=== PATIENT | female | born 1980 | race Caucasian/White ===

== ENCOUNTER 2023-12-22 10:04 | Outpatient (OUT) | payer OTHER, SELFPAY ==
--- NOTE | 2023-12-22 10:18 | MM_ITS ---
Patient Name: PARVEZ PALMA MR#: [id number] : 1980 Exam Date: 12/22/2023 Ordering Doctor: DR Ron Huff . RADIOLOGY REPORT PROCEDURE: MM TOMOSYNTHESIS SCREENING BI COMPARISON: MG MAMM LT DIAG FU, 08/18/2020. MG MAMM SCREEN 3D WON CAD, 12/30/2021. INDICATIONS: Screening Calculator Name NCI Breast Cancer Risk Assessment Tool 5 Year Breast Cancer Risk 1.00% Lifetime Breast Cancer Risk 12.00% Personal Breast Cancer No Personal Ovarian Cancer No Treatments None Family Cancers None LOCATION: [facility] BREAST COMPOSITION: The breasts are heterogeneously dense,which may obscure small masses. FINDINGS: DIAGNOSTIC CATEGORY 2--BENIGN FINDING: Scattered benign-appearing nodules are present. Scattered benign-appearing calcifications are present. Scattered benign-appearing lymph nodes are present. RIGHT BREAST: No significant suspicious finding. LEFT BREAST: No significant suspicious finding. RECOMMENDATIONS: ROUTINE MAMMOGRAM AND CLINICAL EVALUATION IN 12 MONTHS. PLEASE NOTE: A NORMAL MAMMOGRAM DOES NOT EXCLUDE THE POSSIBILITY OF BREAST CANCER. A CLINICALLY SUSPICIOUS PALPABLE LUMP SHOULD BE BIOPSIED. Dictated by: Gallo Wharton MD on 12/22/2023 at 11:40 Approved by: Gallo Wharton MD on 12/22/2023 at 11:42
== END 2023-12-22 10:05 | disposition home or self-care (01) ==
LOC: MAMMO 10:08
PROVIDERS: PCP Family Medicine; Visit Provider Obstetrics & Gynecology
DX: Z12.31 Encounter for screening mammogram for malignant neoplasm of breast (principal)
CPT/HCPCS: 77063; 77067

== ENCOUNTER 2025-05-15 09:51 | Outpatient (OUT) | payer OTHER, SELFPAY ==
--- NOTE | 2025-05-15 09:53 | MM_ITS ---
Patient Name: PARVEZ PALMA MR#: [id number] : 1980 Exam Date: 05/15/2025 Ordering Doctor: DR KISHAN LOVE . RADIOLOGY REPORT PROCEDURE: MM TOMOSYNTHESIS SCREENING BI COMPARISON: MM TOMOSYNTHESIS SCREENING BI, 12/22/2023. MG MAMM SCREEN 3D WON CAD, 12/30/2021. MG MAMM SCREEN WON W CAD, 07/27/2020. INDICATIONS: Screening Calculator Name NCI Breast Cancer Risk Assessment Tool 5 Year Breast Cancer Risk 1.00% Lifetime Breast Cancer Risk 11.90% Personal Breast Cancer No Personal Ovarian Cancer No Treatments None Family Cancers None LOCATION: [facility] BREAST COMPOSITION: There are scattered areas of fibroglandular density. FINDINGS: DIAGNOSTIC CATEGORY 1--NEGATIVE. RIGHT BREAST: No significant suspicious finding. LEFT BREAST: No significant suspicious finding. RECOMMENDATIONS: ROUTINE MAMMOGRAM AND CLINICAL EVALUATION IN 12 MONTHS. Dictated by: Jorge Ferrell DO on 05/15/2025 at 14:36 Approved by: Jorge Ferrell DO on 05/15/2025 at 14:37
--- OUTSIDE RECORDS SUMMARY | 2025-05-15 10:09 | XMS_ITS | CCD ---
Author Organization [facility] Care Team Providers [place] [facility] Coordinator Name Role Phone DR KISHAN HUFF Admitting Unavailable KATE, DR HOLLEY Attending Unavailable KATE, DR HOLLEY Consulting Unavailable KATE, DR HOLLEY Attending Unavailable KATE, DR HOLLEY Consulting Unavailable KATE, DR HOLLEY Admitting Unavailable LOUIE, DR SAMUEL Meyers Consulting Unavailable Edwin Baron Unavailable DO Edwin Baron Primary Care Provider DO Edwin Baron Attending Provider Alvaro Young Unavailable Lisy Sims Unavailable DO Edwin Baron Primary Care Provider DO Edwin Baron Attending Provider Yoselin CARMEN Attending Unavailable Edwin Baron DO Primary Care Provider Ly DO, Tammie L Attending Provider Edwin Baron DO Attending Provider Edwin Baron DO Primary Care Provider Edwin Baron DO Primary Care Provider [phone] Ly DO, Tammie L Attending Provider [phone] Chano Robins MD Attending Provider Edwin Baron DO Primary Care Provider Ly DO, Tammie L Attending Provider [phone] Chano Robins MD Referring Provider Bridget Suggs MD Attending Provider Ly, Tammie L Admitting Unavailable Ly, Tammie L Attending Unavailable Kuns, Edwin Primary Care Unavailable Kuns, Edwin Primary Care Unavailable Ly, Tammie L Admitting Unavailable Ly, Tammie L Attending Unavailable Kuns, Edwin Primary Care Unavailable Kuns, Edwin Attending Unavailable Kuns, Edwin Admitting Unavailable Kuns, Edwin Primary Care Unavailable Kuns, Edwin Attending Unavailable Kuns, Edwin Admitting Unavailable Tann, Chano Admitting Unavailable Tann, Chano Attending Unavailable Kuns, Edwin Primary Care Unavailable Tann, Chano Admitting Unavailable Tann, Chano Attending Unavailable Kuns, Edwin Primary Care Unavailable Kuns, Edwin Primary Care Unavailable Tann, Chano Admitting Unavailable Tann, Chano Attending Unavailable Tann, Chano Referring Unavailable Medications Current Medications Medication Drug Class(es) Dates Sig (Normalized) Sig (Original) ascorbic acid 1000 mg oral tablet (3 sources) Vitamin C take 2 tablets by mouth every twenty-four hours Vitamin C 1000 MG 2 tablets Orally Once a day Active cholecalciferol 0.125 mg oral tablet (1 source) Vitamin D take 1 tablet by mouth every twenty-four hours Vitamin D3 125 MCG (5000 UT) 1 tablet Orally Once a day Active Ergocalciferol (Vitamin D2) 500,000 unit/mL solution (8 sources) Start: 10-21-2024 Start: 10-21-2024 Ergocalciferol (Vitamin D2) 500,000 unit/mL solution Active 42292 UNIT IM .QOW October 21, 2024 12:00am Garlic preparation (7 sources) Non-Standardized Food Allergenic Extract Garlic Active Magnesium (12 sources) take 1 tablet by mouth once daily Magnesium 400 MG 1 tablet with a meal Orally Once a day Active magnesium oxide 400 mg oral tablet (12 sources) Start: 4 take 1 tablet by mouth once daily Mecobalamin (Vitamin B12) 10,000 mcg recon soln (8 sources) Start: 5 Start: 10-21-2024 Mecobalamin (V itamin B12) 10,000 mcg recon soln Active 1 MCG IM .QOW October 21, 2024 12:00am mesalamine 1000 mg rectal mirza ppository (20 sources) Aminosalicylate Start: 05-27-2024 End: 07-08-2024 Start: 07-03-2017 End: 10-04-2023 Mesalamine 1,000 mg supposit ory Discontinued 1000 MG IA As Directed February 16, 2023 12:00am October 04, 2023 11:29am Mesalamine (Canasa) 1,000 mg suppository (11 sources) Start: 07-08-2024 Mesalamine (Ca nasa) 1,000 mg suppository Active 1 GM IA Daily at bedtime July 08, 2024 10:45am Start: 05-27-2024 End: 07-08-2024 Mesalamine (Canasa) 1,000 mg suppository Discontinued 1 GM IA Daily at bedtime as needed May 27, 2024 12:00am July 08, 2024 10:47am Start: 05-27-2024 Mesalamine (Ca nasa) 1,000 mg suppository Active 1 GM IA Daily at bedtime May 27, 2024 12:00am polyethylene glycol 3350 [id number] mg / potassium chloride 2970 mg / sodium bicarbonate 6740 mg / sodium chloride 5860 mg / sodium sulfate 00151 mg powder for oral solution (1 source) Osmotic Laxative Start: 11-17-2022 Golytely 236 GM At 4:00 pm the day prior to colonoscopy Orally 8 ounces every 15 minutes for 1 Nov, Active predniSONE 20 mg oral tablet (2 sources) Start: 03-19-2023 predniSONE 20 MG Take 3 tabs daily x 3 days, then take 2 tabs daily x 3 days, then take 1 tab daily x 3 days. Orally Once a day for 9 days Mar, Active probiotic (12 sources) probiotic as directed Active Vitamin C 1000 MG (9 sources) take 2 tablets by mouth once daily Vitamin C 1000 MG 2 tablets Orally Once a day Active Vitamin D3 125 MCG (5000 UT) (11 sources) take 1 tablet by mouth once daily Vitamin D3 125 MCG (5000 UT) 1 tablet Orally Once a day Active zinc gluconate 50 mg oral tablet (12 sources) take 1 tablet by mouth every twenty-four hours Zinc 50 MG 1 tablet Orally Once a day Active Completed/Discontinued Medications Medication Drug Class(es) Dates Sig (Normalized) Sig (Original) aluminum hydroxide 6.33 mg/ml / magnesium carbonate 23.9 mg/ml oral suspension (13 sources) Start: 07-03-2017 End: 02-16-2023 take 1 mL by mouth at bedtime Aluminum Hydrox-Magnesium Carb (Gaviscon) 95-358 mg/15 mL Suspension Discontinued 15 ML PO after meals and at bedtime July 03, 2017 1:00am February 16, 2023 7:21am amoxicillin 500 mg oral tablet (20 sources) Penicillin-class Antibacterial Start: 10-04-2023 End: 10-16-2023 take 1 tablet by mouth every twelve hours Amoxicillin 500 mg tablet Discontinued 500 MG PO Every 12 hours October 04, 2023 1:00am October 16, 2023 4:56pm Start: 12-30-2022 take 1 capsule by [facility] every eight hours Amoxicillin 500 MG 1 capsule Orally three times a day for 10 day(s) December, Active cephalexin 500 mg oral capsule (11 sources) Cephalosporin Antibacterial Start: 05-27-2024 End: 07-08-2024 take 1 capsule by mouth every twelve hours Cephalexin 500 mg capsule Discontinued 500 MG PO Every 12 hours 26 05May 27, 2024 12:00am July 08, 2024 10:33am citalopram 20 mg oral tablet (20 sources) Serotonin Reuptake Inhibitor Start: 07-03-2017 End: 02-21-2025 take 1 tablet by mouth once daily Citalopram 20 mg tablet Discontinued 20 MG PO Daily July 09, 2024 11:09am February 21, 2025 2:03pm ezetimibe 10 mg oral tablet (20 sources) Dietary Cholesterol Absorption Inhibitor Start: 10-16-2023 End: 05-27-2024 take 1 tablet by mouth once daily Ezetimibe (Zetia) 10 mg tablet Discontinued 10 MG PO Daily October 16, 2023 12:00am May 27, 2024 9:38am Start: 10-24-2022 End: 10-04-2023 take 1 tablet by mouth once daily Ezetimibe (Zetia) 10 mg Tablet Discontinued 10 MG PO Daily February 16, 2023 12:00am October 04, 2023 11:29am Lactobacillus Combination No.4 (Probiotic) 3 billion cell Capsule (13 sources) Start: 07-03-2017 End: 10-04-2023 take 3 capsules by mouth once daily Lactobacillus Combination No.4 (Probiotic) 3 billion cell Capsule Discontinued 3000 MMU CELLS PO Daily July 03, 2017 1:00am October 04, 2023 11:29am Start: 07-03-2017 take 3 capsules by m outh once daily Lactobacillus Combination No.4 (Probiotic) 3 billion cell Capsule Active 3000 MMU CELLS PO Daily July 03, 2017 12:00am Multi For Her - (6 sources) Multi For Her - Orally Not-Taking Multi For Her - Orally Active Multivitamin Capsule (10 sources) Start: 07-03-2017 End: 02-16-2023 take 1 capsule by mouth once daily Multivitamin Capsule Discontinued 1 CAP PO Daily July 03, 2017 1:00am February 16, 2023 7:25am Multivitamin preparation (5 sources) Start: 10-04-2023 End: 05-27-2024 take 1 tablet by mouth once daily Multivitamin Discontinued 1 TAB PO Daily October 04, 2023 1:00am May 27, 2024 9:39am Start: 10-04-2023 take 1 tablet by kasia once daily Multivitamin Active 1 TAB PO Daily October 04, 2023 1:00am Start: 07-03-2017 End: 02-16-2023 take 1 capsule by mouth once daily Multivitamin Discontinued 1 CAP PO Daily July 03, 2017 1:00am February 16, 2023 7:25am Start: 07-03-2017 take 1 capsule by mo [facility] once daily Multivitamin Active 1 CAP PO Daily July 03, 2017 12:00am Multivitamin tablet (10 sources) Start: 10-04-2023 End: 05-27-2024 take 1 tablet by mouth once daily Multivitamin tablet Discontinued 1 TAB PO Daily October 04, 2023 1:00am May 27, 2024 9:39am nitrofurantoin, macrocrystals 25 mg / nitrofurantoin, monohydrate 75 mg oral capsule (12 sources) Nitrofuran Antibacterial Start: 10-25-2023 End: 05-27-2024 take 1 capsule by mouth twice daily at mealtime Nitrofurantoin Monohyd/M-Cryst (Macrobid) 100 mg capsule Discontinued 100 MG PO Twice daily October 25, 2023 12:00am May 27, 2024 9:38am must administer with a meal/food rosuvastatin calcium 5 mg oral tablet (20 sources) HMG-CoA Reductase Inhibitor Start: 10-16-2023 End: 05-27-2024 take 1 tablet by mouth once daily Rosuvastatin 5 mg tablet Discontinued 5 MG PO Daily October 16, 2023 12:00am May 27, 2024 9:38am Start: 02-16-2023 End: 10-04-2023 Rosuvastatin 10 mg Tablet Discontinued 10 MG PO As Directed February 16, 2023 12:00am October 04, 2023 11:29am Start: 10-24-2022 take 1 tablet by kasia th every twenty-four hours Rosuvastatin Calcium 5 MG 1 tablet Orally Once a day Oct, Active Problems Active Problems Problem Classification Problem Date Documented Da te Episodic/Chronic Abdominal hernia (1 source) Diaphragmatic hernia without obstruction or gangrene Episodic Anxiety disorders (20 sources) Anxiety; Translations: [Anxiety disorder, unspecified] Chronic Disorders of lipid metabolism (20 sources) Hyperlipidemia; Translations: [Hyperlipidemia, unspecified] Onset: 2 Resolved: 2 Chronic Esophageal disorders (20 sources) Gastroesophageal reflux disease; Translations: [Gastro-esophageal reflux disease without esophagitis] Chronic Gastritis and duodenitis (3 sources) Gastritis; Translations: [Gastritis, unspecified, without bleeding] Episodic Gout and other crystal arthropathies (17 sources) Gouty arthritis of right hand; Translations: [Gout, unspecified] Chronic Immunizations and screening for infectious disease (1 source) Encounter for screening for human papillomavirus (HPV); Translations: [ENC SCREENING HUMAN PAPILLOMAVIRUS] Onset: 2 Episodic Miscellaneous mental health disorders (12 sources) Globus sensation; Translations: [Other somatoform disorders] Chronic Noninfectious gastroenteritis (12 sources) Colitis; Translations: [Noninfective gastroenteritis and colitis, unspecified] 10-16-2023 Episodic Nonspecific chest pain (10 sources) Chest pain; Translations: [Chest pain, unspecified] Onset: 5 02-20-2025 Episodic Other and unspecified benign neoplasm (2 sources) History of polyp of colon; Translations: [Personal history of colonic polyps] Episodic Other and unspecified benign neoplasm (1 source) Personal history of colonic polyps Episodic Other disorders of stomach and duodenum (7 sources) Indigestion; Translations: [Functional dyspepsia] Episodic Other disorders of stomach and duodenum (1 source) Functional dyspepsia Episodic Other gastrointestinal disorders (7 sources) Dysphagia; Translations: [Dysphagia, unspecified] Episodic Other gastrointestinal disorders (1 source) Dysphagia, unspecified Episodic Other lower respiratory disease (9 sources) Dyspnea; Translations: [Dyspnea, unspecified] 02-20-2025 Episodic Other lower respiratory disease (1 source) Dyspnea, unspecified; Translations: [Dyspnea, unspecified] Onset: 5 Episodic Other screening for suspected conditions (not mental disorders or infectious disease) (16 sources) Encounter for screening mammogram for malignant neoplasm of breast; Translations: [Encounter for screening for malignant neoplasm of cervix] Onset: 2 Episodic Other upper respiratory disease (12 sources) Feeling of lump in throat; Translations: [Globus sensation] 10-04-2023 Episodic Other upper respiratory infections (12 sources) Acute pharyngitis, unspecified; Translations: [Acute pharyngitis] 10-04-2023 Episodic Regional enteritis and ulcerative colitis (20 sources) Chronic ulcerative proctitis; Translations: [Ulcerative (chronic) proctitis with rectal bleeding] 07-03-2017 Chronic Comment on above: Problem List clean-u p per request of Phys. EHR Cmte Residual codes; unclassified (9 sources) Family history of cardiac disorder; Translations: [Family history of ischemic heart disease and other diseases of the circulatory system] Episodic Residual codes; unclassified (1 source) Family history of ischemic heart disease and other diseases of the circulatory system Episodic Residual codes; unclassified (8 sources) FH: Cardiovascular disease; Translations: [Family history of ischemic heart disease and other diseases of the circulatory system] 02-20-2025 Episodic Thyroid disorders (20 sources) Hypothyroidism; Translations: [Hypothyroidism, unspecified] 10-04-2023 Chronic Unclassified (4 sources) Atypical chest pain in patient with intermediate baseline 10-year CHD risk based primarily on strong family history of premature coronary heart disease. 02-20-2025 Urinary tract infections (20 sources) Leukocytes in urine; Translations: [Urinary tract infection, site not specified] Onset: 2 Resolved: 2 Episodic Past or Other Problems Problem Classification Problem Date Documented Da te Episodic/Chronic Genitourinary symptoms and ill-defined conditions (17 sources) Microscopic hematuria; Translations: [Other microscopic hematuria] Onset: 10-21-2024 Episodic Results Test Name Value Interpretation Reference Range Facility [facility] echo transthoracicon 09- 08-2025 [facility] echo transthoracic [place] [address] Echocardiogram Signed Patient: Gabriella Pozo MR#: [id number] : 1980 Acct:[id number] Age/Sex: 44 / F ADM Date: 04/14/25 Loc: Room: Type: [facility] Attending Dr: Chano Robins MD Ordering Provider: Chano Robins MD Date of Service: 04/14/2503/31/1349 [facility] echo transthoracic: R07.9 - Chest pain, unspecified Copies to: MD Chano Ray MD Gabriella Martinez Patient Location: : 1980 Gender: Female (MM/DD/YYYY) Age: 44 Years Ordering Physician: Chano Robins Height: 67 in Referring Physician: Chano Robins Weight: 175 lb Performed By: LINDSEY Abrams BSA: 1.91 m2 BP: 102 / 73 mmHg HR: 91 bpm Reason For Study: R07.9 - Chest pain, unspecified History: Hyperlipidemia, family history CAD + + Interpretation Summary Ejection Fraction = 55-60%. The left ventricular size and thickness are normal. No regional wall motion abnormalities noted. A variety of Doppler measurements indicate normal left ventricular diastolic function. There is no comparison study available. Procedure/Quality: A two-dimensional transthoracic echocardiogram with color flow and Doppler was performed. The study was technically good in quality. Left Ventricle: The left ventricular size and thickness are normal. Ejection Fraction = 55-60%. A variety of Doppler measurements indicate normal left ventricular diastolic function. No regional wall motion abnormalities noted. Left Atrium: The left atrium appears normal in size. Right Atrium: The right atrium appears normal in size. Right Ventricle: The right ventricle is normal in size and function. Aortic Valve: The aortic valve is normal in structure. No hemodynamically significant valvular aortic stenosis. No aortic regurgitation is present. Mitral Valve: The mitral valve is normal in structure. No significant mitral valve stenosis. There is no mitral regurgitation noted. Tricuspid Valve: The tricuspid valve is normal in structure. No tricuspid regurgitation. Pulmonic Valve: The pulmonic valve is not well visualized. No significant pulmonic regurgitation. Arteries: The aortic root is normal size. Pericardium/Pleura: No pericardial effusion seen. IVC/Hepatic Veins: The inferior vena cava is normal in size, with a normal collapsibility index. MMode/2D Measurements Calculations IVSd (0.7-1.1 cm): 0.90 cm LVIDd (3.7-5.4 cm): 4.8 cm LVPWd (0.7-1.1 cm): 0.90 cm LVIDs (2.3-3.6 cm): 2.9 cm LA dimension (2.3-4.0 cm): 2.8 LVOT diam: 1.90 cm cm FS: 39.6 % LVOT area: 2.8 cm2 EDV(Teich): 107.5 ml Ao root area: 4.5 cm2 ESV(Teich): 32.2 ml Ao root diam (2.0-3.2 cm): 2.40 cm EF(Teich): 70.0 % asc Aorta Diam: 2.8 cm LA A2 area: 13.8 cm2 LA A4 area: 11.2 cm2 LA length (vol): 5.2 cm LA vol: 25.2 ml LA vol index: 13.2 ml/m2 Doppler Measurements Calculations E/E' med: 6.0 Ao V2 max: 145.0 cm/sec E/E' lat: 5.5 Ao max P.4 mmHg MV E max miguel angel: 67.3 cm/sec Ao mean P.0 mmHg MV A max miguel angel: 75.3 cm/sec Ao V2 mean: 110.0 cm/sec MV E/A: 0.89 Ao V2 VTI: 26.7 cm MEMO(I,D): 1.98 cm2 MEMO(V,D): 2.13 cm2 MV V2 VTI: 15.9 cm MV mean P.00 mmHg MV V2 mean: 56.8 cm/sec TV max P.0 mmHg LV V1 max: 109.0 cm/sec TR max miguel angel: 166.0 cm/sec LV V1 max P.8 mmHg TR max P.0 mmHg LV V1 mean: 66.0 cm/sec RAP systole: 5.0 mmHg LV V1 mean P.00 mmHg RVSP(TR): 16.0 mmHg LV V1 VTI: 18.6 cm + + + + + ------+ + : Electronically : : signed by: Ahsan : : : : Kehinde : : Nick : : : : : : on: 04/14/2025, : : : : 8:14 PM : + ------+ + Tech Comments No previous echo. Transcribed By: SCV Performed At: 04/14/25 4311 Signed By: Ahsan Romero MD 04/14/252013 Normal [facility] CT heart angio w/scoreon CT heart angio w/score [address] [place] [address] CT Scan Report Signed with Addenda Patient: Gabriella Pozo MR#: [id number] : 1980 Acct:[id number] Age/Sex: 44 / F ADM Date: 03/28/25 Loc: CT Room: Type: [facility] Attending Dr: Chano Robins MD Copies to: Chano Robins MD Ordering Provider: Chano Robins MD Date of Service: 03/28/25 CT/CT heart angio w/score: R07.9 - Chest pain, unspecified ADDENDUM 1 Addendum is for evaluation of the extracardiac structures. Visualized lung parenchyma demonstrates a lung scarring without acute process. No mediastinal or hilar lymphadenopathy. Visualized upper abdomen demonstrates no acute process. Addendum Dictated By: Jorge Ferrell Jr, DO Addendum Signed By: 03/31/25821 Addendum Cosigned By: DD/ TD/TT: 03/31/[address]/CT heart angio w/score IMPRESSION: No evidence of clinically significant extracardiac finding. Impression dictated by: Jorge Ferrell Jr., D.OCayden 03/31/2025 8:22 AM Dictation Location: [place] [address] Addendum Dictated By: Jorge Ferrell Jr, DO Addendum Signed By: 03/31/25821 Addendum Cosigned By: DD/ TD/TT: 03/31/25 CLINICAL INDICATION: Patient Age: 44 years Patient Gender: Female Indication: Evaluation of coronary arteries for atherosclerosis or coronary anomalies TECHNIQUE: Image Acquisition: A Assurza View 128 was used for data acquisition. Bolus tracking in the descending aorta with a threshold of 150 HU media was performed. Immediately afterwards, ECG synchronized Cardiac CT was then performed from cardiac base to apex using Trigger Method: retrospective gating with ECG tube current modulation. A total of 80 mL of Omnipaque 350 mgl/mL contrast media was administered at 5 mL/sec followed by a saline flush using a biphasic injection protocol. Tube voltage 100 kVp. Heart rate was controlled with metoprolol, as needed. Coronary vasodilation was facilitated with sublingual nitroglycerin. The average heart rate at the time of acquisition was 61 bpm and regular. Image Reconstruction: Transaxial images were reconstructed at 0.63 mm slice thickness. Data was reviewed interactively on an advanced workstation capable of 2 and 3 dimensional displays in all conventional reconstruction formats including multiplanar reformations, maximum intensity projections, curved multiplanar reformations, and volume rendered reconstructions. Selected routine images displaying relevant coronary anatomy and pathology were saved and sent to PACS. Complications: None Technical Quality: Overall image quality is Good. Coronary artery opacification is Excellent. No significant artifact. Total DLP (Dose-Length Product): 1417 mGy.cm). (19.8 mSv). Please note: The reported value represents the total of one or more individual components during the CT acquisition on this date and at this time, and as such, the same value may appear in more than one CT report depending on the interpreting/reportin g physicians. FINDINGS: -CT Coronary Calcium Scoring- LMA= 0 LAD= 0 LCX= 0 RCA= 0 No coronary calcification with an Agatston score = CAC score of 0 using the AJ-130 method, thus there is no percentile rank. Other Calcification: No other significant intracardiac calcification. -Coronary CT Angiography- Coronary Arteries: The coronaries have normal origin and proximal course. Note: Stenosis is reported as maximum percentage diameter stenosis. Stenosis grading is reported using the following scheme. Quantitative Stenosis Grading: CAD-RADS 0: 0% - No visible stenosis CAD-RADS 1: 1-24% - Minimal stenosis CAD-RADS 2: 25-49% - Mild stenosis CAD-RADS 3: 50-69% - Moderate stenosis CAD-RADS 4A: 70-99% - Severe stenosis in 1-2 vessels CAD-RADS 4B: Left main >50%, or 3 vessel >70% CAD-RADS 5: 100% - Occluded Left Main: CAD-RADS 0: The left main bifurcates into the left anterior descending artery and left circumflex artery. The left main has no visible stenosis. LAD: CAD-RADS 0. The LAD courses along the anterior interventricular grove as it gives off diagonal arteries. No significant stenosis of the LAD. LCx and Obtuse Marginals: CAD-RADS 0. The left circumflex courses along the left AV groove as it gives off obtuse marginal arteries. No significant stenosis of the left circumflex artery. RCA: CAD-RADS 0. The right coronary artery originates from the right cusp and courses along the right AV groove as it gives off acute marginal arteries. Distally provides the right PDA. No significant stenosis of the RCA. The mid RCA is not well visualized at the crux due to motion artifact. The coronary arterial system is right dominant. Non Coronary Cardiac Findings: Grossly norm (more content not included)... Normal [facility] FPG ECG *CARDIOLOGY ONLY*on 02-20-2025 FPG ECG *CARDIOLOGY ONLY* [facility] Main [place] [address] [place] [address] Electrocardiograph Report Signed Patient: Gabriella Pozo MR#: [id number] : 1980 Acct:[id number] Age/Sex: 44 / F ADM Date: 02/20/25 Loc: [facility] Room: Type: [facility] Attending Dr: Chano Robins MD Ordering Provider: Chano Robins MD Date of Service: 02/20/25 ECG/FPG ECG *CARDIOLOGY ONLY*: R07.9 - Chest pain, unspecified Copies to: Test Reason : Blood Pressure : */* mmHG Vent. Rate : 81 BPM Atrial Rate : 81 BPM P-R Int : 132 ms QRS Dur : 80 ms QT Int : 374 ms P-R-T Axes : 52 -42 11 degrees QTcB Int : 434 ms Normal sinus rhythm Left axis deviation Nonspecific T wave abnormality Abnormal ECG Confirmed by Bridget Suggs ([id number]) on 02/21/2025 1:44:48 PM Referred By: Electronically Signed By: Bridget Suggs Transcribed By: MUS Signed By Bridget Suggs MD [id number] Normal [facility] Alanine aminotransferase [En zymatic activity/volume] in Serum or PlasmaOrdered By: Edwin Baron on 10-21-2024 ALT [Catalytic activity/Vol] Alanine aminotransferase [Enzymatic activity/volume] in Serum or Plasma [facility] Albumin [Mass/volume] in Ser um or Plasma by Bromocresol green (BCG) dye binding methoOrdered By: Edwin Baron on 10-21-2024 Albumin BCG dye [Mass/Vol] Albumin [Mass/volume] in Serum or Plasma by Bromocresol green (BCG) dye binding metho 3.5-5.7 [facility] Alkaline phosphatase [Enzyma tic activity/volume] in Serum or PlasmaOrdered By: Edwin Baron on 10-21-2024 ALP [Catalytic activity/Vol] Alkaline phosphatase [Enzymatic activity/volume] in Serum or Plasma 34-104 [facility] Aspartate aminotransferase [ Enzymatic activity/volume] in Serum or PlasmaOrdered By: Edwin Baron on 10-21-2024 AST [Catalytic activity/Vol] Aspartate aminotransferase [Enzymatic activity/volume] in Serum or Plasma Low 13-39 [facility] Basophils Auto (Bld) [#/Vol] Ordered By: Edwin Baron on 10-21-2024 Basophils (Bld) [#/Vol] Automated basoph il count 0.0-0.2 [facility] Basophils/100 WBC Auto (Bld) Ordered By: Edwin Baron on 10-21-2024 Basophils/100 WBC (Bld) Automated basophil % . [facility] Bilirubin.total [Mass/volume ] in Serum or PlasmaOrdered By: Edwin Baron on 10-21-2024 Bilirubin [Mass/Vol] Bilirubin.total [Mass/volume] in Serum or Plasma 0.3-1.0 [facility] CMP with reflex to A1Con Albumin [Mass/Vol] 4.0 g/dL Normal 3.5-5.7 [facility] Comment on above: Performed By: #### B 12, CUU, CBC, CMP wRFX A1C, [id number], TSH3, LIPID #### [facility] [address] Albumin/Globulin [Mass ratio] 1.3 {ratio} Normal [facility] Comment on above: Performed By: #### B 12, CUU, CBC, CMP wRFX A1C, [id number], TSH3, LIPID #### [facility] [address] [place] [id number] [facility] ALP [Catalytic activity/Vol] 45 U/L Normal 34-104 [facility] Comment on above: Performed By: #### B 12, CUU, CBC, CMP wRFX A1C, [id number], TSH3, LIPID #### [facility] [address] ALT [Catalytic activity/Vol] 13 U/L Normal 7-52 [facility] Comment on above: Performed By: #### B 12, CUU, CBC, CMP wRFX A1C, [id number], TSH3, LIPID #### [address] Anion gap [Moles/Vol] 10.2 mmol/L Normal 6.0-15.0 [facility] Comment on above: Performed By: #### B 12, CUU, CBC, CMP wRFX A1C, [id number], TSH3, LIPID #### [address] AST [Catalytic activity/Vol] 12 U/L Low 13-39 [facility] Comment on above: Performed By: #### B 12, CUU, CBC, CMP wRFX A1C, [id number], TSH3, LIPID #### [address] Bilirubin [Mass/Vol] 0.4 mg/dL Normal 0.3-1.0 [facility] Comment on above: Performed By: #### B 12, CUU, CBC, CMP wRFX A1C, [id number], TSH3, LIPID #### [address] Calcium [Mass/Vol] 9.1 mg/dL Normal 8.6-10.3 [facility] Comment on above: Performed By: #### B 12, CUU, CBC, CMP wRFX A1C, [id number], TSH3, LIPID #### [address] Chloride [Moles/Vol] 104 mmol/L Normal 98-107 [facility] Comment on above: Performed By: #### B 12, CUU, CBC, CMP wRFX A1C, [id number], TSH3, LIPID #### [address] CO2 [Moles/Vol] 27.8 mmol/L Normal 21.0-31.0 [facility] Comment on above: Performed By: #### B 12, CUU, CBC, CMP wRFX A1C, [id number], TSH3, LIPID #### [address] Creatinine [Mass/Vol] 0.86 mg/dL Normal 0.60-1.20 [facility] Comment on above: Performed By: #### B 12, CUU, CBC, CMP wRFX A1C, [id number], TSH3, LIPID #### [place] [address] [place] GFR/1.73 sq M.predicted MDRD (S/P/Bld) [Vol rate/Area] mL/min/{1.73_m2} Normal [facility] Comment on above: Performed By: #### B 12, CUU, CBC, CMP wRFX A1C, [id number], TSH3, LIPID #### [address] Globulin (S) [Mass/Vol] 3.2 g/dL Normal T [facility] Comment on above: Performed By: #### B 12, CUU, CBC, CMP wRFX A1C, [id number], TSH3, LIPID #### [address] Glucose [Mass/Vol] 91 mg/dL Normal 70-100 [facility] Comment on above: Performed By: #### B 12, CUU, CBC, CMP wRFX A1C, [id number], TSH3, LIPID #### [place] [address] [place] Potassium [Moles/Vol] 4.0 mmol/L Normal 3.5-5.1 [facility] Comment on above: Performed By: #### B 12, CUU, CBC, CMP wRFX A1C, [id number], TSH3, LIPID #### [address] [address] [place] Protein [Mass/Vol] 7.2 g/dL Normal 6.4-8.9 [facility] Comment on above: Performed By: #### B 12, CUU, CBC, CMP wRFX A1C, [id number], TSH3, LIPID #### [facility] [address] Sodium [Moles/Vol] 138 mmol/L Normal 136-145 [facility] Comment on above: Performed By: #### B 12, CUU, CBC, CMP wRFX A1C, [id number], TSH3, LIPID #### [facility] [address] Urea nitrogen [Mass/Vol] 14 mg/dL Normal 7-25 [facility] Comment on above: Performed By: #### B 12, CUU, CBC, CMP wRFX A1C, [id number], TSH3, LIPID #### [facility] [address] Calcium [Mass/volume] in Ser um or PlasmaOrdered By: Edwin Baron on 10-21-2024 Calcium [Mass/Vol] Calcium [Mass/volume ] in Serum or Plasma 8.6-10.3 [facility] Carbon dioxide, total [Moles /volume] in Serum or PlasmaOrdered By: Edwin Baron on 10-21-2024 CO2 [Moles/Vol] Carbon dioxide, tota l [Moles/volume] in Serum or Plasma 21.0-31.0 [facility] Chloride [Moles/volume] in S bismark or PlasmaOrdered By: Edwin Baron on 10-21-2024 Chloride [Moles/Vol] Chloride [Moles/volume] in Serum or Plasma 98-107 [facility] Cholesterol [Mass/volume] in Serum or PlasmaOrdered By: Edwin Baron on 10-21-2024 Cholesterol [Mass/Vol] Cholesterol [Mass/volume] in Serum or Plasma High 140-200 [facility] Comment on above: Chol less than 200 m g/dl low riskChol 201-239 mg/dl borderline riskChol 240 mg/dl and greater high risk Cholesterol in HDL [Mass/vol ume] in Serum or PlasmaOrdered By: Edwin Baron on 10-21-2024 Cholesterol in HDL [Mass/Vol] Serum or plasma high density lipoprotein (HDL) cholesterol measurement [facility] Comment on above: HDL CHOL ATP-III CLA SSIFICATION Cardiovascular RiskHDL > or equal to 60 mg/dL LOWHDL < 40 mg/dL HIGH Cholesterol in LDL Calc [Mas s/Vol]Ordered By: Edwin Baron on 10-21-2024 Cholesterol in LDL [Mass/Vol] Cholesterol in LDL [Mass/volume] in Serum or Plasma by calculation High 0-100 [facility] Comment on above: LDL ATP III CLASSIFI CATIONLDL less than 100 mg/dL OptimalLDL 100-129 mg/dL Near or above optimalLDL 130-159 mg/dL Borderline highLDL 160-189 mg/dL HighLDL greater than 189 mg/dL Very high Cholesterol in VLDL Calc [Ma ss/Vol]Ordered By: Edwin Baron on 10-21-2024 Cholesterol in VLDL [Mass/Vol] Cholesterol in VLDL [Mass/volume] in Serum or Plasma by calculation [facility] Complete Blood Count Auto Di ffon 10-21-2024 Basophils (Bld) [#/Vol] 0.0 10*3/uL Normal 0.0-0.2 [facility] Comment on above: Result Comment: PERF ORMED BY: [place] [address] PATHOLOGIST SUGAR CANE GROWER JEAN CARLOS OAKLEY M.D. Performed By: #### B 12, CUU, CBC, CMP wRFX A1C, [id number], TSH3, LIPID #### [facility] [address] [place] [address] [place] Basophils/100 WBC (Bld) 0.6 % Normal . T nancy [facility] Comment on above: Performed By: #### B 12, CUU, CBC, CMP wRFX A1C, [id number], TSH3, LIPID #### [facility] [address] [place] [address] [place] Eosinophils (Bld) [#/Vol] 0.1 10*3/uL Normal 0.0-0.45 [facility] Comment on above: Performed By: #### B 12, CUU, CBC, CMP wRFX A1C, [id number], TSH3, LIPID #### [address] Eosinophils/100 WBC (Bld) 1.4 % Normal . [facility] Comment on above: Performed By: #### B 12, CUU, CBC, CMP wRFX A1C, [id number], TSH3, LIPID #### [address] Erythrocyte distribution width (RBC) [Ratio] 13.2 % Normal 11.9-15.3 [facility] Comment on above: Performed By: #### B 12, CUU, CBC, CMP wRFX A1C, [id number], TSH3, LIPID #### [address] Hematocrit (Bld) [Volume fraction] 39.6 % Normal 34.0-46.4 [facility] Comment on above: Performed By: #### B 12, CUU, CBC, CMP wRFX A1C, [id number], TSH3, LIPID #### [address] Hemoglobin (Bld) [Mass/Vol] 13.5 g/dL Normal 11.8-15.4 [facility] Comment on above: Performed By: #### B 12, CUU, CBC, CMP wRFX A1C, [id number], TSH3, LIPID #### [address] Lymphocytes (Bld) [#/Vol] 2.4 10*3/uL Normal 1.00-4.8 [facility] Comment on above: Performed By: #### B 12, CUU, CBC, CMP wRFX A1C, [id number], TSH3, LIPID #### [address] Lymphocytes/100 WBC (Bld) 30.3 % Normal . [facility] Comment on above: Performed By: #### B 12, CUU, CBC, CMP wRFX A1C, [id number], TSH3, LIPID #### [address] MCH (RBC) [Entitic mass] 29.2 pg Normal 24.7-34.3 [facility] Comment on above: Performed By: #### B 12, CUU, CBC, CMP wRFX A1C, [id number], TSH3, LIPID #### [address] MCV (RBC) [Entitic vol] 85.7 fL Normal 80-100 [facility] Comment on above: Performed By: #### B 12, CUU, CBC, CMP wRFX A1C, [id number], TSH3, LIPID #### [address] Mean Corpuscular HGB Conc 34.0 g/dL Normal 32.0-35.0 [facility] Comment on above: Performed By: #### B 12, CUU, CBC, CMP wRFX A1C, [id number], TSH3, LIPID #### [address] Monocytes (Bld) [#/Vol] 0.5 10*3/uL Normal 0.0-0.8 [facility] Comment on above: Performed By: #### B 12, CUU, CBC, CMP wRFX A1C, [id number], TSH3, LIPID #### [address] Monocytes/100 WBC (Bld) 5.8 % Normal . [facility] Comment on above: Performed By: #### B 12, CUU, CBC, CMP wRFX A1C, [id number], TSH3, LIPID #### [address] Neutrophils (Bld) [#/Vol] 4.9 10*3/uL Normal 1.8-7.7 [facility] Comment on above: Performed By: #### B 12, CUU, CBC, CMP wRFX A1C, [id number], TSH3, LIPID #### [facility] [address] Neutrophils/100 WBC (Bld) 61.9 % Normal . [facility] Comment on above: Performed By: #### B 12, CUU, CBC, CMP wRFX A1C, [id number], TSH3, LIPID #### [facility] [address] NRBC% 0.1 /100{WBC} Normal 0-0.5 [facility] Comment on above: Performed By: #### B 12, CUU, CBC, CMP wRFX A1C, [id number], TSH3, LIPID #### [address] Platelet mean volume (Bld) [Entitic vol] 8.6 fL Normal 6.3-10.7 [facility] Comment on above: Performed By: #### B 12, CUU, CBC, CMP wRFX A1C, [id number], TSH3, LIPID #### [address] Platelets (Bld) [#/Vol] 263 10*3/uL Normal 150-450 [facility] Comment on above: Performed By: #### B 12, CUU, CBC, CMP wRFX A1C, [id number], TSH3, LIPID #### [address] RBC (Bld) [#/Vol] 4.62 10*6/uL Normal 3.60-5.00 [facility] Comment on above: Performed By: #### B 12, CUU, CBC, CMP wRFX A1C, [id number], TSH3, LIPID #### [place] [address] [place] WBC (Bld) [#/Vol] 7.9 10*3/uL Normal 3.8-11.6 [facility] Comment on above: Performed By: #### B 12, CUU, CBC, CMP wRFX A1C, [id number], TSH3, LIPID #### [facility] [address] [place] [id number] [facility] Creatinine [Mass/volume] in Serum or PlasmaOrdered By: Edwin Baron on 10-21-2024 Creatinine [Mass/Vol] Creatinine [Mass/volume] in Serum or Plasma 0.60-1.20 [facility] Eosinophils Auto (Bld) [#/Vo l]Ordered By: Edwin Baron on 10-21-2024 Eosinophils (Bld) [#/Vol] Automated eosinophil count 0.0-0.45 [facility] Eosinophils/100 WBC Auto (Bl d)Ordered By: Edwin Baron on 10-21-2024 Eosinophils/100 WBC (Bld) Automated eosinophil % . [facility] Erythrocyte distribution wid th Auto (RBC) [Ratio]Ordered By: Ediwn Baron on 10-21-2024 Erythrocyte distribution width (RBC) [Ratio] Erythrocyte distribution width [Ratio] by Automated count 11.9-15.3 [facility] FPG ECG *PCP OFFICE ONLY*on 10-21-2024 FPG ECG *PCP OFFICE ONLY* [facility] [address] [place] [id number] Electrocardiograph Report Signed Patient: Gabriella Pozo MR#: [id number] : 1980 Acct:[id number] Age/Sex: 44 / F ADM Date: 10/21/24 Loc: EKGCAST Room: Type: [facility] Attending Dr: Edwin Baron DO Ordering Provider: Edwin Baron DO Date of Service: 10/21/24 ECG/FPG ECG *PCP OFFICE ONLY*: Z00.00 - Encounter for general adult medical examination ... Copies to: Test Reason : Blood Pressure : */* mmHG Vent. Rate : 69 BPM Atrial Rate : 69 BPM P-R Int : 132 ms QRS Dur : 82 ms QT Int : 390 ms P-R-T Axes : 40 -14 35 degrees QTcB Int : 417 ms Normal sinus rhythm Nonspecific T wave abnormality Abnormal ECG When compared with ECG of 17-Oct-2023 08:35, No significant change was found Confirmed by SANDIE MOYER MD ([id number]) on 10/24/2024 5:50:08 PM Referred By: Electronically Signed By: SANDIE MOYER MD Transcribed By: MUS Signed By Sandie Moyer MD 0 10/24/24 1750 Normal [facility] Globulin Calc (S) [Mass/Vol] Ordered By: Edwin Baron on 10-21-2024 Globulin (S) [Mass/Vol] Serum globulin measurement by calculation (mass/volume) [facility] Glucose [Mass/volume] in Ser um or PlasmaOrdered By: Edwin Baron on 10-21-2024 Glucose [Mass/Vol] Glucose [Mass/volume ] in Serum or Plasma 70-100 [facility] Hematocrit Auto (Bld) [Volum e fraction]Ordered By: Edwin Baron on 10-21-2024 Hematocrit (Bld) [Volume fraction] Hematocrit [Volume Fraction] of Blood by Automated count 34.0-46.4 [facility] Hemoglobin [Mass/volume] in BloodOrdered By: Edwin Baron on 10-21-2024 Hemoglobin (Bld) [Mass/Vol] Hemoglobin [Mass/volume] in Blood 11.8-15.4 [facility] Laboratory - Chemistry and C hemistry - challengeon 10-21-2024 Bilirubin Ql (U) Negative [facility] Glucose (U) [Mass/Vol] Negative [facility] Ketones Ql (U) Negative [facility] pH (U) 7.0 [pH] [facility] Specific gravity (U) [Rel density] 1.020 [facility] Urobilinogen (U) [Mass/Vol] 0.2 mg/dL [facility] Laboratory - Urinalysison Leukocyte esterase Test strip Ql (U) Small [facility] Nitrite Ql (U) Negative [facility] Protein Ql (U) Negative [facility] Leukocytes [#/volume] correc isaac for nucleated erythrocytes in Blood by Automated counOrdered By: Edwin Baron on 10-21-2024 WBC corrected for nucl RBC Auto (Bld) [#/Vol] Leukocytes [#/volume] corrected for nucleated erythrocytes in Blood by Automated coun 3.8-11.6 [facility] Lipid Panelon 10-21-2024 Cholesterol [Mass/Vol] 285 mg/dL High 140-200 [facility] Comment on above: Result Comment: Chol less than 200 mg/dl low risk Chol 201-239 mg/dl borderline risk Chol 240 mg/dl and greater high risk Performed By: #### B 12, CUU, CBC, CMP wRFX A1C, [id number], TSH3, LIPID #### [facility] [address] [place] [address] [place] Cholesterol in HDL [Mass/Vol] 42 mg/dL Normal 23-92 [facility] Comment on above: Result Comment: HDL CHOL ATP-III CLASSIFICATION Cardiovascular Risk HDL > or equal to 60 mg/dL LOW HDL < 40 mg/dL HIGH Performed By: #### B 12, CUU, CBC, CMP wRFX A1C, [id number], TSH3, LIPID #### [facility] [address] [place] [address] [facility] Cholesterol.total/Noni sterol in HDL [Mass ratio] 6.8 {ratio} Normal <5.0 [facility] Comment on above: Performed By: #### B 12, CUU, CBC, CMP wRFX A1C, [id number], TSH3, LIPID #### [facility] [address] [place] [id number] [place] LDL Cholesterol,Calculated 199 mg/dL High 0-100 [facility] Comment on above: Result Comment: LDL ATP III CLASSIFICATION LDL less than 100 mg/dL Optimal LDL 100-129 mg/dL Near or above optimal LDL 130-159 mg/dL Borderline high LDL 160-189 mg/dL High LDL greater than 189 mg/dL Very high Performed By: #### B 12, CUU, CBC, CMP wRFX A1C, [id number], TSH3, LIPID #### [facility] [address] [place] [address] [place] Triglyceride w/Reflex 222 mg/dL High 0-149 [facility] Comment on above: Result Comment: TRIG ATP III CLASSIFICATION TRIG less than 150 mg/dL Normal TRIG 150-199 mg/dL Borderline high TRIG 200-500 mg/dL High TRIG greater than 500 mg/dL Very high Standard traceable to the Center for Disease Conrtrol and Prevention (CDC) test method. Performed By: #### B 12, CUU, CBC, CMP wRFX A1C, [id number], TSH3, LIPID #### [facility] [address] VLDL CHOLESTEROL 44 mg/dL Normal [facility] Comment on above: Performed By: #### B 12, CUU, CBC, CMP wRFX A1C, [id number], TSH3, LIPID #### [facility] [address] Lymphocytes Auto (Bld) [#/Vo l]Ordered By: Edwin Baron on 10-21-2024 Lymphocytes (Bld) [#/Vol] Lymphocytes [#/volume] in Blood by Automated count 1.00-4.8 [facility] Lymphocytes/100 WBC Auto (Bl d)Ordered By: Edwin Baron on 10-21-2024 Lymphocytes/100 WBC (Bld) Lymphocytes/100 leukocytes in Blood by Automated count . [facility] MCH Auto (RBC) [Entitic mass ]Ordered By: Edwin Baron on 10-21-2024 MCH (RBC) [Entitic mass] MCH [Entitic mass] by Automated count 24.7-34.3 [facility] MCHC Auto (RBC) [Mass/Vol]Or dered By: Edwin Baron on 10-21-2024 MCHC (RBC) [Mass/Vol] MCHC [Mass/volume] by Automated count 32.0-35.0 [facility] MCV Auto (RBC) [Entitic vol] Ordered By: Edwin Baron on 10-21-2024 MCV (RBC) [Entitic vol] MCV [Entitic vol ume] by Automated count 80-100 [facility] Monocytes Auto (Bld) [#/Vol] Ordered By: Edwin Baron on 10-21-2024 Monocytes (Bld) [#/Vol] Automated blood monocyte count 0.0-0.8 [facility] Monocytes/100 WBC Auto (Bld) Ordered By: Edwin Baron on 10-21-2024 Monocytes/100 WBC (Bld) Automated monocyte % . [facility] Neutrophils Auto (Bld) [#/Vo l]Ordered By: Edwin Baron on 10-21-2024 Neutrophils (Bld) [#/Vol] Neutrophils [#/volume] in Blood by Automated count 1.8-7.7 [facility] Neutrophils/100 WBC Auto (Bl d)Ordered By: Edwin Baron on 10-21-2024 Neutrophils/100 WBC (Bld) Automated neutrophil % . [facility] No Panel InformationOrdered By: Edwin Baron on 10-21-2024 Estimated GFR (CKD-EPI) > 60.0 mL/Min [facility] Creatinine Clearance (Chem N/A [facility] No Panel Informationon 10-21 U[address] Occ[address] Blood Negative [facility] Nucleated erythrocytes [Pres ence] in Blood by Automated countOrdered By: Edwin Baron on 10-21-2024 Nucleated RBC Auto Ql (Bld) Nucleated erythrocytes [Presence] in Blood by Automated count 0-0.5 [facility] Platelet mean volume Auto (B ld) [Entitic vol]Ordered By: Edwin Baron on 10-21-2024 Platelet mean volume (Bld) [Entitic vol] Platelet mean volume [Entitic volume] in Blood by Automated count 6.3-10.7 [facility] Platelets Auto (Bld) [#/Vol] Ordered By: Edwin Baron on 10-21-2024 Platelets (Bld) [#/Vol] Platelets [#/vol ume] in Blood by Automated count 150-450 [facility] Potassium [Moles/volume] in Serum or PlasmaOrdered By: Edwin Baron on 10-21-2024 Potassium [Moles/Vol] Potassium [Moles/volume] in Serum or Plasma 3.5-5.1 [facility] Protein [Mass/volume] in Ser um or PlasmaOrdered By: Edwin Baron on 10-21-2024 Protein [Mass/Vol] Protein [Mass/volume ] in Serum or Plasma 6.4-8.9 [facility] RBC Auto (Bld) [#/Vol]Ordere d By: Edwin Baron on 10-21-2024 RBC (Bld) [#/Vol] Erythrocytes [#/volume] in Blood by Automated count 3.60-5.00 [facility] Serum or plasma albumin/glob ulin mass ratioOrdered By: Edwin Baron on 10-21-2024 Albumin/Globulin [Mass ratio] Serum or plasma albumin/globulin mass ratio [facility] Serum or plasma anion gap de terminationOrdered By: Edwin Baron on 10-21-2024 Anion gap [Moles/Vol] Serum or plasma an ion gap determination 6.0-15.0 [facility] Serum or plasma total choles terol/high density lipoprotein (HDL) cholesterol mass ratOrdered By: Edwin Baron on 10-21-2024 Cholesterol.total/Noni sterol in HDL [Mass ratio] Serum or plasma total cholesterol/high density lipoprotein (HDL) cholesterol mass rat <5.0 [facility] Sodium [Moles/volume] in Ser um or PlasmaOrdered By: Edwin Baron on 10-21-2024 Sodium [Moles/Vol] Sodium [Moles/volume ] in Serum or Plasma 136-145 [facility] Thyroid Stimulating Hormoneo n 10-21-2024 TSH Qn 2.37 m[IU]/L Normal 0.45-5.33 [facility] Comment on above: Performed By: #### B 12, CUU, CBC, CMP wRFX A1C, [id number], TSH3, LIPID #### [facility] [address] Thyrotropin [Units/volume] i n Serum or PlasmaOrdered By: Edwin Baron on 10-21-2024 TSH Qn Thyrotropin [Units/volume] in Serum or Plasma 0.45-5.33 [facility] Triglyceride [Mass/volume] i n Serum or PlasmaOrdered By: Edwin Baron on 10-21-2024 Triglyceride [Mass/Vol] Triglyceride [Mass/volume] in Serum or Plasma High 0-149 [facility] Comment on above: TRIG ATP III CLASSIF ICATIONTRIG less than 150 mg/dL NormalTRIG 150-199 mg/dL Borderline highTRIG 200-500 mg/dL High TRIG greater than 500 mg/dL Very highStandard traceable to the Center for Disease Conrtrol and Prevention (CDC) test method. Urea nitrogen [Mass/volume] in Serum or PlasmaOrdered By: Edwin Baron on 10-21-2024 Urea nitrogen [Mass/Vol] Urea nitrogen [Mass/volume] in Serum or Plasma 7 [facility] Urine Cultureon 10-21-2024 Bacteria identified Cx Nom (U) 20,000 colonies/ml mixed bacterial skin contaminants 2 Days PERFORMED BY: [place] [address] PATHOLOGIST SUGAR CANE GROWER JEAN CARLOS OAKLEY M.D. Normal [facility] Comment on above: Performed By: #### B 12, CUU, CBC, CMP wRFX A1C, [id number], TSH3, LIPID #### [facility] [address] Urine cultureOrdered By: Lucy Baron on 10-21-2024 Bacteria identified Cx Nom (U) Urine culture [facility] Vitamin B12on 10-21-2024 Cobalamin (Vitamin B12) [Mass/Vol] 4504 pg/mL High 180-914 [facility] Comment on above: Performed By: #### B 12, CUU, CBC, CMP wRFX A1C, [id number], TSH3, LIPID #### [facility] [address] Vitamin B12 ser/plasOrdered By: Edwin Baron on 10-21-2024 Cobalamin (Vitamin B12) [Mass/Vol] Vitamin B12 ser/plas High 180-914 [facility] Vitamin D 25 Hydroxy Totalon 10-21-2024 Vitamin D 25 Hydroxy Total 42.1 ng/mL Normal 30-100 [facility] Comment on above: Result Comment: THERESA MIN D STATUS 25(OH)VITAMIN D RANGE (ng/mL) Deficient <20 Insufficient 20 to <30 Sufficient 30 to 100 Reference: Natanael MF,Harry NC, Kwabena SARMIENTO, et al. Evaluation,treatment, and prevention of vitamin D deficiency; an Endocrine Society clinical practice guideline. JCEM. 2010; 96(7):1911-30. PERFORMED BY: [place] [address] PATHOLOGIST SUGAR CANE GROWER JEAN CARLOS OAKLEY M.D. Performed By: #### B 12, CUU, CBC, CMP wRFX A1C, [id number], TSH3, LIPID #### [facility] [address] Vitamin D+Metabolites [Mass/ volume] in Serum or PlasmaOrdered By: Edwin Baron on 10-21-2024 Vitamin D+Metabolites [Mass/Vol] Vitamin D+Metabolites [Mass/volume] in Serum or Plasma 30-100 [facility] Comment on above: VITAMIN D STATUS 25( OH)VITAMIN D RANGE (ng/mL) Deficient <20 Insufficient 20 to <30Sufficient 30 to 100Reference: Natanael MF,Harry NC, Kwabena SARMIENTO, et al. Evaluation,treatment, and prevention of vitamin D deficiency; an Endocrine Society clinical practice guideline. JCEM. 2010; 96(7):1911-30. WBC Auto (Bld) [#/Vol]Ordere d By: Edwin Baron on 10-21-2024 WBC (Bld) [#/Vol] Leukocytes [#/volume ] in Blood by Automated count 3.8-11.6 [facility] No Panel InformationOrdered By: Lisy Sims on 05-27-2024 Quick Strep (POC) [facility] - Chemistry and C hemistry - challengeon 10-17-2023 Bilirubin Ql (U) Negative [facility] Glucose (U) [Mass/Vol] Negative [facility] Ketones Ql (U) Negative [facility] pH (U) 7.0 [pH] [facility] Specific gravity (U) [Rel density] 1.020 [facility] Urobilinogen (U) [Mass/Vol] 0.2 mg/dL [facility] Laboratory - Urinalysison Leukocyte esterase Test strip Ql (U) trace [facility] Nitrite Ql (U) Negative [facility] Protein Ql (U) trace [facility] No Panel Informationon 10-[address] Occ[address] Blood Negative [facility] Urine culture routineOrdered By: Edwin Baron on 10-17-2023 Bacteria identified Cx Nom (U) Escherichia coli [facility] Alanine aminotransferase [En zymatic activity/volume] in Serum or PlasmaOrdered By: Edwin Baron on 10-09-2023 ALT [Catalytic activity/Vol] 11 U/L 7-52 [facility] Albumin [Mass/volume] in Ser um or Plasma by Bromocresol green (BCG) dye binding methoOrdered By: Edwin Baron on 10-09-2023 Albumin BCG dye [Mass/Vol] 3.9 g/dL 3.5-5.7 [facility] Alkaline phosphatase [Enzyma tic activity/volume] in Serum or PlasmaOrdered By: Edwin Baron on 10-09-2023 ALP [Catalytic activity/Vol] 47 U/L 34-104 [facility] Aspartate aminotransferase [ Enzymatic activity/volume] in Serum or PlasmaOrdered By: Edwin Baron on 10-09-2023 AST [Catalytic activity/Vol] 12 U/L 13-39 [facility] Basophils Auto (Bld) [#/Vol] Ordered By: Edwin Baron on 10-09-2023 Basophils (Bld) [#/Vol] 0.1 10*3/uL 0.0-0.2 [facility] Basophils/100 WBC Auto (Bld) Ordered By: Edwin Baron on 10-09-2023 Basophils/100 WBC (Bld) 1.2 % . [facility] Bilirubin.total [Mass/volume ] in Serum or PlasmaOrdered By: Edwin Baron on 10-09-2023 Bilirubin [Mass/Vol] 0.4 mg/dL 0.3-1.0 [facility] Calcium [Mass/volume] in Ser um or PlasmaOrdered By: Edwin Baron on 10-09-2023 Calcium [Mass/Vol] 9.1 mg/dL 8.6-10.3 [facility] Carbon dioxide, total [Moles /volume] in Serum or PlasmaOrdered By: Edwin Baron on 10-09-2023 CO2 [Moles/Vol] 26.9 mmol/L 21.0-31.0 [facility] Chloride [Moles/volume] in S bismark or PlasmaOrdered By: Edwin Baron on 10-09-2023 Chloride [Moles/Vol] 105 mmol/L 98-107 [facility] Cholesterol [Mass/volume] in Serum or PlasmaOrdered By: Edwin Baron on 10-09-2023 Cholesterol [Mass/Vol] 235 mg/dL 140-200 [facility] Comment on above: Chol less than 200 m g/dl low riskChol 201-239 mg/dl borderline riskChol 240 mg/dl and greater high risk Cholesterol in LDL Calc [Mas s/Vol]Ordered By: Edwin Baron on 10-09-2023 Cholesterol in LDL [Mass/Vol] 150 mg/dL 0-100 [facility] Comment on above: LDL ATP III CLASSIFI CATIONLDL less than 100 mg/dL OptimalLDL 100-129 mg/dL Near or above optimalLDL 130-159 mg/dL Borderline highLDL 160-189 mg/dL HighLDL greater than 189 mg/dL Very high Cholesterol in VLDL Calc [Ma ss/Vol]Ordered By: Edwin Baron on 10-09-2023 Cholesterol in VLDL [Mass/Vol] 51 mg/dL [facility] Creatinine [Mass/volume] in Serum or PlasmaOrdered By: Edwin Baron on 10-09-2023 Creatinine [Mass/Vol] 0.81 mg/dL 0.60-1.20 [facility] Eosinophils Auto (Bld) [#/Vo l]Ordered By: Edwin Baron on 10-09-2023 Eosinophils (Bld) [#/Vol] 0.1 10*3/uL 0.0-0.45 [facility] Eosinophils/100 WBC Auto (Bl d)Ordered By: Edwin Baron on 10-09-2023 Eosinophils/100 WBC (Bld) 1.7 % . [facility] Erythrocyte distribution wid th Auto (RBC) [Ratio]Ordered By: Edwin Baron on 10-09-2023 Erythrocyte distribution width (RBC) [Ratio] 13.1 % 11.9-15.3 [facility] Globulin Calc (S) [Mass/Vol] Ordered By: Edwin Baron on 10-09-2023 Globulin (S) [Mass/Vol] 3.2 g/dL [facility] Glucose [Mass/volume] in Ser um or PlasmaOrdered By: Edwin Baron on 10-09-2023 Glucose [Mass/Vol] 86 mg/dL 70-100 [facility] Comment on above: ADA recommended refe rence rangeRandom Glucose Reference Range is dependent on time and content of last meal. Glucose of more than 200 mg/dL in a nonstressed, ambulatory subject supports the diagnosis of Diabetes Mellitus. Hematocrit Auto (Bld) [Volum e fraction]Ordered By: Edwin Baron on 10-09-2023 Hematocrit (Bld) [Volume fraction] 38.0 % 34.0-46.4 [facility] Hemoglobin [Mass/volume] in BloodOrdered By: Edwin Baron on 10-09-2023 Hemoglobin (Bld) [Mass/Vol] 12.9 g/dL 11.8-15.4 [facility] Leukocytes [#/volume] correc isaac for nucleated erythrocytes in Blood by Automated counOrdered By: Edwin Baron on 10-09-2023 WBC corrected for nucl RBC Auto (Bld) [#/Vol] 8.4 10*3/uL 3.8-11.6 [facility] Lymphocytes Auto (Bld) [#/Vo l]Ordered By: Edwin Baron on 10-09-2023 Lymphocytes (Bld) [#/Vol] 3.0 10*3/uL 1.00-4.8 [facility] Lymphocytes/100 WBC Auto (Bl d)Ordered By: Edwin Baron on 10-09-2023 Lymphocytes/100 WBC (Bld) 35.4 % . [facility] MCH Auto (RBC) [Entitic mass ]Ordered By: Edwin Baron on 10-09-2023 MCH (RBC) [Entitic mass] 28.7 pg 24.7-34.3 [facility] MCHC Auto (RBC) [Mass/Vol]Or dered By: Edwni Baron on 10-09-2023 MCHC (RBC) [Mass/Vol] 33.9 g/dL 32.0-35.0 [facility] MCV Auto (RBC) [Entitic vol] Ordered By: Edwin Baron on 10-09-2023 MCV (RBC) [Entitic vol] 84.9 fL 80-100 [facility] Monocytes Auto (Bld) [#/Vol] Ordered By: Edwin Baron on 10-09-2023 Monocytes (Bld) [#/Vol] 0.6 10*3/uL 0.0-0.8 [facility] Monocytes/100 WBC Auto (Bld) Ordered By: Edwin Baron on 10-09-2023 Monocytes/100 WBC (Bld) 7.1 % . [facility] Neutrophils Auto (Bld) [#/Vo l]Ordered By: Edwin Baron on 10-09-2023 Neutrophils (Bld) [#/Vol] 4.6 10*3/uL 1.8-7.7 [facility] Neutrophils/100 WBC Auto (Bl d)Ordered By: Edwin Baron on 10-09-2023 Neutrophils/100 WBC (Bld) 54.6 % . [facility] No Panel InformationOrdered By: Edwin Baron on 10-09-2023 Estimated GFR (CKD-EPI) > 60.0 mL/Min [facility] Creatinine Clearance (Chem N/A [facility] Nucleated erythrocytes [Pres ence] in Blood by Automated countOrdered By: Edwin Baron on 10-09-2023 Nucleated RBC Auto Ql (Bld) 0.1 /100{WBC} 0-0.5 [facility] Platelet mean volume Auto (B ld) [Entitic vol]Ordered By: Edwin Baron on 10-09-2023 Platelet mean volume (Bld) [Entitic vol] 9.0 fL 6.3-10.7 [facility] Platelets Auto (Bld) [#/Vol] Ordered By: Edwin Baron on 10-09-2023 Platelets (Bld) [#/Vol] 325 10*3/uL 150-450 [facility] Potassium [Moles/volume] in Serum or PlasmaOrdered By: Edwin Baron on 10-09-2023 Potassium [Moles/Vol] 3.9 mmol/L 3.5-5.1 [facility] Protein [Mass/volume] in Ser um or PlasmaOrdered By: Edwin Baron on 10-09-2023 Protein [Mass/Vol] 7.1 g/dL 6.4-8.9 [facility] RBC Auto (Bld) [#/Vol]Ordere d By: Edwin Baron on 10-09-2023 RBC (Bld) [#/Vol] 4.47 10*6/uL 3.60-5.00 [facility] Serum or plasma albumin/glob ulin mass ratioOrdered By: Edwin Baron on 10-09-2023 Albumin/Globulin [Mass ratio] 1.2 {ratio} [facility] Serum or plasma anion gap de terminationOrdered By: Edwin Baron on 10-09-2023 Anion gap [Moles/Vol] 9.0 mmol/L 6.0-15.0 [facility] Serum or plasma high density lipoprotein (HDL) cholesterol measurementOrdered By: Edwin Baron on 10-09-2023 Cholesterol in HDL [Mass/Vol] 33 mg/dL 23-92 [facility] Comment on above: HDL CHOL ATP-III CLA SSIFICATION Cardiovascular RiskHDL > or equal to 60 mg/dL LOWHDL < 40 mg/dL HIGH Serum or plasma total choles terol/high density lipoprotein (HDL) cholesterol mass ratOrdered By: Edwin Baron on 10-09-2023 Cholesterol.total/Noni sterol in HDL [Mass ratio] 7.1 {ratio} <5.0 [facility] Sodium [Moles/volume] in Ser um or PlasmaOrdered By: Edwin Baron on 10-09-2023 Sodium [Moles/Vol] 137 mmol/L 136-145 [facility] Thyrotropin [Units/volume] i n Serum or PlasmaOrdered By: Edwin Baron on 10-09-2023 TSH Qn 2.66 m[IU]/L 0.45-5.33 [facility] Triglyceride [Mass/volume] i n Serum or PlasmaOrdered By: Edwin Baron on 10-09-2023 Triglyceride [Mass/Vol] 259 mg/dL 0-149 [facility] Comment on above: TRIG ATP III CLASSIF ICATIONTRIG less than 150 mg/dL NormalTRIG 150-199 mg/dL Borderline highTRIG 200-500 mg/dL High TRIG greater than 500 mg/dL Very highStandard traceable to the Center for Disease Conrtrol and Prevention (CDC) test method. Urea nitrogen [Mass/volume] in Serum or PlasmaOrdered By: Edwin Baron on 10-09-2023 Urea nitrogen [Mass/Vol] 17 mg/dL 7-25 [facility] WBC Auto (Bld) [#/Vol]Ordere d By: Edwin Baron on 10-09-2023 WBC (Bld) [#/Vol] 8.4 10*3/uL 3.8-11.6 [facility] No Panel InformationOrdered By: Charles Pendleton on 10-04-2023 Quick Strep (POC) [facility] Albumin [Mass/volume] in Bod y fluidOrdered By: Edwin Baron on 10-04-2022 Albumin (Body fld) [Mass/Vol] 3.6 g/dL 3.2-5.5 [facility] Alkaline phosphatase [Enzyma tic activity/volume] in Serum or PlasmaOrdered By: Edwin Baron on 10-04-2022 ALP [Catalytic activity/Vol] 51 U/L Normal 32-92 U/L [facility] Aspartate aminotransferase [ Enzymatic activity/volume] in Serum or PlasmaOrdered By: Edwin Baron on 10-04-2022 AST [Catalytic activity/Vol] 17 U/L Normal 10-42 U/L [facility] Basophils Auto (Bld) [#/Vol] Ordered By: Edwin Baron on 10-04-2022 Basophils (Bld) [#/Vol] 0.0 10*3/uL 0.0-0.2 [facility] Basophils/100 WBC Auto (Bld) Ordered By: Edwin Baron on 10-04-2022 Basophils/100 WBC (Bld) 0.4 % . [facility] Bilirubin.total [Mass/volume ] in Serum or PlasmaOrdered By: Edwin Baron on 10-04-2022 Bilirubin [Mass/Vol] 0.3 mg/dL 0.3-1.2 [facility] Calcium [Mass/volume] in Ser um or PlasmaOrdered By: Edwin Baron on 10-04-2022 Calcium [Mass/Vol] 9.1 mg/dL 8.2-10.2 [facility] Carbon dioxide, total [Moles /volume] in Serum or PlasmaOrdered By: Edwin Baron on 10-04-2022 CO2 [Moles/Vol] 26.2 mmol/L 22.0-30.0 [facility] Chloride [Moles/volume] in S bismark or PlasmaOrdered By: Edwin Baron on 10-04-2022 Chloride [Moles/Vol] 103 mmol/L Normal 95-114 mmol/L [facility] Cholesterol [Mass/volume] in Serum or PlasmaOrdered By: Edwin Baron on 10-04-2022 Cholesterol [Mass/Vol] 255 mg/dL High 140-2 00 mg/dL [facility] Comment on above: Chol less than 200 m g/dl low riskChol 201-239 mg/dl borderline riskChol 240 mg/dl and greater high risk Cholesterol in LDL Calc [Mas s/Vol]Ordered By: Edwin Baron on 10-04-2022 Cholesterol in LDL [Mass/Vol] [facility] Comment on above: Test not performed Cholesterol in LDL [Mass/vol ume] in Serum or PlasmaOrdered By: Edwin Baron on 10-04-2022 Cholesterol in LDL [Mass/Vol] 104 mg/dL 0-100 [facility] Comment on above: LDL ATP III CLASSIFI CATIONLDL less than 100 mg/dL OptimalLDL 100-129 mg/dL Near or above optimalLDL 130-159 mg/dL Borderline highLDL 160-189 mg/dL HighLDL greater than 189 mg/dL Very high Cholesterol in VLDL Calc [Ma ss/Vol]Ordered By: Edwin Baron on 10-04-2022 Cholesterol in VLDL [Mass/Vol] [facility] Comment on above: Test not performed Complete Blood Count Auto Di ffon 10-04-2022 Basophils (Bld) [#/Vol] 0.672135476 10*3/uL Normal 0.0-0.2 10*3/uL [facility] Other Basophils/100 WBC (Bld) 0.400 % . % [facility] [employer] Other Eosinophils (Bld) [#/Vol] 0.321952385 10*3/uL Normal 0.0-0.45 10*3/uL [facility] Other Eosinophils/100 WBC (Bld) 1.400 % . % [facility] Other Erythrocyte distribution width (RBC) [Ratio] 13.300 % Normal 11.9-15.3 % [facility] Other Hematocrit (Bld) [Volume fraction] 41.900 % Normal 34.0-46.4 % [facility] Other Hemoglobin (Bld) [Mass/Vol] 13.366096 g/dL Normal 11.8-15.4 g/dL [facility] Other Lymphocytes (Bld) [#/Vol] 2.764713849 10*3/uL Normal 1.00-4.8 10*3/uL [facility] Other Lymphocytes/100 WBC (Bld) 33.900 % . % [facility] Other MCH (RBC) [Entitic mass] 28.5000 pg Normal 24.7-34.3 pg [facility] Other MCV (RBC) [Entitic vol] 86.7000 fL Normal 80-100 fL [facility] [employer] Other Monocytes (Bld) [#/Vol] 0.991603814 10*3/uL Normal 0.0-0.8 10*3/uL [facility] Other Monocytes/100 WBC (Bld) 5.200 % . % [facility] [employer] Other Neutrophils (Bld) [#/Vol] 4.455497461 10*3/uL Normal 1.8-7.7 10*3/uL [facility] Other Neutrophils/100 WBC (Bld) 59.100 % . % [facility] Other Platelet mean volume (Bld) [Entitic vol] 8.3000 fL Normal 6.3-10.7 fL [facility] Other WBC (Bld) [#/Vol] 7.038630222 10*3/uL Normal 3.8 -11.6 10*3/uL [facility] Other Complete Blood Count Auto Diff 7.4 10*3/uL Normal 3.8-11.6 10*3/uL [facility] Other Complete Blood Count Auto Diff 32.8 g/dL Normal 32.0-35.0 g/dL [facility] Other Complete Blood Count Auto Diff 0.1 /100{WBC} Normal 0-0.5 /100{WBC} [facility] Other Comprehensive Metabolic Pane iron 10-04-2022 Albumin [Mass/Vol] 3.813814 g/dL Normal 3.2-5.5 g/dL [employer] Other ALT [Catalytic activity/Vol] 17 U/L Normal 10-60 U/L [facility] Other Bilirubin [Mass/Vol] 0.3601065 mg/dL Normal 0.3- 1.2 mg/dL [facility] Other Calcium [Mass/Vol] 9.5077882 mg/dL Normal 8.2-10 .2 mg/dL [facility] Other CO2 [Moles/Vol] 26.84898425 mmol/L Normal 22.0-3 0.0 mmol/L [facility] Other Creatinine [Mass/Vol] 0.33520735 mg/dL Normal 0. 44-1.03 mg/dL [facility] Other Potassium [Moles/Vol] 4.93813967 mmol/L Normal 3 .5-5.1 mmol/L [facility] Other Protein [Mass/Vol] 6.999853 g/dL Normal 6.1-7.9 g/dL [employer] Other Comprehensive Metabolic Panel > 60 [facility] Other Comprehensive Metabolic Panel 3.1 g/dL [facility] Other Creatinine and Glomerular fi ltration rate.predicted panel (S/P/Bld)Ordered By: Edwin Baron on 10-04-2022 Creatinine [Mass/Vol] 0.80 mg/dL 0.44-1.03 [facility] Eosinophils Auto (Bld) [#/Vo l]Ordered By: Edwin Baron on 10-04-2022 Eosinophils (Bld) [#/Vol] 0.1 10*3/uL 0.0-0.45 [facility] Eosinophils/100 WBC Auto (Bl d)Ordered By: Edwin Baron on 10-04-2022 Eosinophils/100 WBC (Bld) 1.4 % . [facility] Erythrocyte distribution wid th Auto (RBC) [Ratio]Ordered By: Edwin Baron on 10-04-2022 Erythrocyte distribution width (RBC) [Ratio] 13.3 % 11.9-15.3 [facility] Erythrocytes [#/volume] in B lood by Automated countOrdered By: Edwin Baron on 10-04-2022 RBC (Bld) [#/Vol] 4.83 10*6/uL Normal 3.60-5.00 [facility] Estimated glomerular filtrat ion rate (GFR) non- AmericanOrdered By: Edwin Baron on 10-04-2022 GFR/1.73 sq M.predicted among non-blacks MDRD (S/P/Bld) [Vol rate/Area] > 60 mL/Min [facility] Globulin Calc (S) [Mass/Vol] Ordered By: Edwin Baron on 10-04-2022 Globulin (S) [Mass/Vol] 3.1 g/dL [facility] Glucose [Mass/volume] in Ser um or PlasmaOrdered By: Edwin Baron on 10-04-2022 Glucose [Mass/Vol] 95 mg/dL Normal 70-100 mg/dL [facility] Comment on above: ADA recommended refe rence rangeRandom Glucose Reference Range is dependent on time and content of last meal. Glucose of more than 200 mg/dL in a nonstressed, ambulatory subject supports the diagnosis of Diabetes Mellitus. Hematocrit Auto (Bld) [Volum e fraction]Ordered By: Edwin Baron on 10-04-2022 Hematocrit (Bld) [Volume fraction] 41.9 % 34.0-46.4 [facility] Hemoglobin [Mass/volume] in BloodOrdered By: Edwin Baron on 10-04-2022 Hemoglobin (Bld) [Mass/Vol] 13.7 g/dL 11.8-15.4 [facility] LDL Cholesterol Measuredon 0 10-04-2022 LDL Cholesterol Measured 104 mg/dL High 0-100 mg/dL [facility] Other Leukocytes [#/volume] correc isaac for nucleated erythrocytes in Blood by Automated counOrdered By: Edwin Baron on 10-04-2022 WBC corrected for nucl RBC Auto (Bld) [#/Vol] 7.4 10*3/uL 3.8-11.6 [facility] Lipid Panelon 10-04-2022 Cholesterol in LDL Elph Qn TNP 0-100 Screen [facility] [employer] Other Lipid Panel 506 mg/dL High 35-149 mg/dL Screen [facility] [employer] Other Lipid Panel TNP [facility] Other Lymphocytes Auto (Bld) [#/Vo l]Ordered By: Edwin Baron on 10-04-2022 Lymphocytes (Bld) [#/Vol] 2.5 10*3/uL 1.00-4.8 [facility] Lymphocytes/100 WBC Auto (Bl d)Ordered By: Edwin Baron on 10-04-2022 Lymphocytes/100 WBC (Bld) 33.9 % . [facility] MCH Auto (RBC) [Entitic mass ]Ordered By: Edwin Baron on 10-04-2022 MCH (RBC) [Entitic mass] 28.5 pg 24.7-34.3 [facility] MCHC Auto (RBC) [Mass/Vol]Or dered By: Edwin Baron on 10-04-2022 MCHC (RBC) [Mass/Vol] 32.8 g/dL 32.0-35.0 [facility] MCV Auto (RBC) [Entitic vol] Ordered By: Edwin Baron on 10-04-2022 MCV (RBC) [Entitic vol] 86.7 fL 80-100 [facility] Monocytes Auto (Bld) [#/Vol] Ordered By: Edwin Baron on 10-04-2022 Monocytes (Bld) [#/Vol] 0.4 10*3/uL 0.0-0.8 [facility] Monocytes/100 WBC Auto (Bld) Ordered By: Edwin Baron on 10-04-2022 Monocytes/100 WBC (Bld) 5.2 % . [facility] Neutrophils Auto (Bld) [#/Vo l]Ordered By: Edwin Baron on 10-04-2022 Neutrophils (Bld) [#/Vol] 4.4 10*3/uL 1.8-7.7 [facility] Neutrophils/100 WBC Auto (Bl d)Ordered By: Edwin Baron on 10-04-2022 Neutrophils/100 WBC (Bld) 59.1 % . [facility] No Panel InformationOrdered By: Edwin Baron on 10-04-2022 Estimated GFR () > 60 mL/Min [facility] Comment on above: GFR estimated refere nce range: According to KDOQI guidelines, <60 ml/min/1.73m2 is sufficient to diagnose a patient with chronic kidney disease. Pharmacy Creatinine Clearance (Chem N/A [facility] Nucleated erythrocytes [Pres ence] in Blood by Automated countOrdered By: Edwin Baron on 10-04-2022 Nucleated RBC Auto Ql (Bld) 0.1 /100{WBC} 0-0.5 [facility] Platelet mean volume Auto (B ld) [Entitic vol]Ordered By: Edwin Baron on 10-04-2022 Platelet mean volume (Bld) [Entitic vol] 8.3 fL 6.3-10.7 [facility] Platelets [#/volume] in Bloo d by Automated countOrdered By: Edwin Baron on 10-04-2022 Platelets (Bld) [#/Vol] 286 10*3/uL Normal 150- 450 10*3/uL [facility] Potassium [Moles/volume] in Serum or PlasmaOrdered By: Edwin Baron on 10-04-2022 Potassium [Moles/Vol] 4.0 mmol/L 3.5-5.1 [facility] Protein [Mass/volume] in Ser um or PlasmaOrdered By: Edwin Baron on 10-04-2022 Protein [Mass/Vol] 6.7 g/dL 6.1-7.9 [facility] Serum or plasma alanine ma otransferase measurement without P-5'-P (enzymatic activiOrdered By: Edwin Baron on 10-04-2022 ALT No additional P-5'-P [Catalytic activity/Vol] 17 U/L 10-60 [facility] Serum or plasma albumin/glob ulin mass ratioOrdered By: Edwin Baron on 10-04-2022 Albumin/Globulin [Mass ratio] 1.2 {ratio} [facility] Serum or plasma anion gap de terminationOrdered By: Edwin Baron on 10-04-2022 Anion gap [Moles/Vol] 10.8 mmol/L 6.0-15.0 [facility] Serum or plasma high density lipoprotein (HDL) cholesterol measurementOrdered By: Edwin Baron on 10-04-2022 Cholesterol in HDL [Mass/Vol] 28 mg/dL Low 35-85 mg/dL [facility] Comment on above: HDL CHOL ATP-III CLA SSIFICATION Cardiovascular RiskHDL > or equal to 60 mg/dL LOWHDL < 40 mg/dL HIGH Serum or plasma total choles terol/high density lipoprotein (HDL) cholesterol mass ratOrdered By: Edwin Baron on 10-04-2022 Cholesterol.total/Noni sterol in HDL [Mass ratio] 9.1 {ratio} <5.0 [facility] Sodium [Moles/volume] in Ser um or PlasmaOrdered By: Edwin Baron on 10-04-2022 Sodium [Moles/Vol] 136 mmol/L Normal 136-146 mmol/L [facility] TSH DL <= 0.005 mIU/L QnOrde red By: Edwin Baron on 10-04-2022 TSH Qn 2.13 m[IU]/L 0.45-5.33 [facility] Thyroid Stimulating Hormoneo n 10-04-2022 TSH Qn 2.95102554363 m[IU]/L Normal 0.45-5 .33 u[iU]/mL [facility] Other Triglyceride [Mass/volume] i n Serum or PlasmaOrdered By: Edwin Baron on 10-04-2022 Triglyceride [Mass/Vol] 506 mg/dL 35-149 [facility] Comment on above: If the triglyceride result is greater than 400, LDLC and related calculations cannot be calculated and resulted.TRIG ATP III CLASSIFICATIONTRIG less than 150 mg/dL NormalTRIG 150-199 mg/dL Borderline highTRIG 200-500 mg/dL High TRIG greater than 500 mg/dL Very highStandard traceable to the Center for Disease Conrtrol and Prevention (CDC) test method. Urea nitrogen [Mass/volume] in Serum or PlasmaOrdered By: Edwin Baron on 10-04-2022 Urea nitrogen [Mass/Vol] 11 mg/dL Normal 9-23 mg/dL [facility] Urine 10 SGon 10-04-2022 Albumin DL <= 20 mg/L (U) [Mass/Vol] Negative [facility] Other Albumin DL <= 20 mg/L (U) [Mass/Vol] trace [facility] Other pH (U) 5.5 [pH] [facility] Other Urine 10 SG Negative [facility] Other Urine 10 SG 1.025 [facility] Other Urine 10 SG trace-intact [facility] Other Urine 10 SG 0.2 [facility] Other Urine Cultureon 10-04-2022 Bacteria identified Cx Nom (U) [facility] Other WBC Auto (Bld) [#/Vol]Ordere d By: Edwin Baron on 10-04-2022 WBC (Bld) [#/Vol] 7.4 10*3/uL 3.8-11.6 [facility] MG MAMM SCREEN 3D WON CADon 05-26-2022 MG MAMM SCREEN 3D WON CAD Patient: GABRIELLA POZO Exam Date: 12/30/2021 : 1980 Gender:F Ordering : DR KISHAN HUFF . Admission #: [id number] Family : Order #: [id number] CLICK HERE TO VIEW EXAM RADIOLOGY REPORT PROCEDURE: MAMMOGRAM SCREENING 3D BILATERAL CAD COMPARISON: None. INDICATIONS: Screening mammography Calculator Name NCI Breast Cancer Risk Assessment Tool 5 Year Breast Cancer Risk 0.80% Lifetime Breast Cancer Risk 12.20% Personal Breast Cancer No Personal Ovarian Cancer No Treatments None Family Cancers None LOCATION: [facility] BREAST COMPOSITION: Heterogeneously dense,which may obscure small masses. FINDINGS: DIAGNOSTIC CATEGORY 2--BENIGN FINDING: RIGHT BREAST: No significant suspicious finding. Stable lymph node posterior upper-outer quadrant. No significant change has occurred. LEFT BREAST: No significant suspicious finding. Stable benign appearing nodule. No significant change has occurred. RECOMMENDATIONS: ROUTINE MAMMOGRAM AND CLINICAL EVALUATION IN 12 MONTHS. PLEASE NOTE: A NORMAL MAMMOGRAM DOES NOT EXCLUDE THE POSSIBILITY OF BREAST CANCER. A CLINICALLY SUSPICIOUS PALPABLE LUMP SHOULD BE BIOPSIED. Dictated by: Samuel Pozo M.D. on 12/30/2021 at 12:43 Approved by: Samuel Pozo M.D. on 12/30/2021 at 12:53 Normal [facility] PAP ACOG PANEL 2: 30 to 65on 12-28-2021 . . Normal [facility] Comment on above: Result Comment: Perf ormed at: [facility] Performed By: #### [id number] #### [facility] [address] [address] [address] Alyson Pastrana Age Gdln ACOG Testing 30-65 Normal [facility] Comment on above: Performed By: #### [id number] #### [facility] [address] [place], [place] [address] Dr. Alyson Pastrana DIAGNOSIS: Comment Normal [facility] Comment on above: Result Comment: NEGA TIVE FOR INTRAEPITHELIAL LESION OR MALIGNANCY. Performed at: [facility] Performed By: #### [id number] #### [facility] [id number] Alyson Pastrana HPV Aptima Negative Normal Negative [facility] Comment on above: Result Comment: This nucleic acid amplification test detects fourteen high-risk HPV types (16,18,31,33,35,39,45,51,52,56,58,59,66,68) without differentiation. Performed at: =G Performed By: #### [id number] #### [facility] [address] [place] [address] Dr. Alyson Pastrana Methodology: Comment Normal [facility] Comment on above: Result Comment: This liquid based ThinPrep(R) pap test was screened with the use of an image guided system. Performed at: WB Performed By: #### [id number] #### [facility] [address] [place] [address] Dr. Alyson Pastrana Note: Comment Normal [facility] Comment on above: Result Comment: The Pap smear is a screening test designed to aid in the detection of premalignant and malignant conditions of the uterine cervix. It is not a diagnostic procedure and should not be used as the sole means of detecting cervical cancer. Both false-positive and false-negative reports do occur. . Performed at: WB Performed By: #### [id number] #### [facility] [address] [place] [address] Dr. Alyson Pastrana Performed by: Comment Normal [facility] Comment on above: Result Comment: Melodie Baker Security Test Engineer (ASCP) Performed at: BA Performed By: #### [id number] #### [facility] [address] [place] [address] Dr. Alyson Pastrana Specimen adequacy: Comment Normal [facility] Comment on above: Result Comment: Sati sfactory for evaluation. No endocervical component is identified. Performed at: BA Performed By: #### [id number] #### [facility] [address] [place] [address] Dr. Alyson Pastrana Complete Blood Count Auto Di ffon 09-28-2021 Basophils (Bld) [#/Vol] 0.0 10*3/uL 0.0-0.2 [facility] Other Basophils/100 WBC (Bld) 0.5 % . N [facility] [employer] Other Eosinophils (Bld) [#/Vol] 0.1 10*3/uL 0.0-0.45 [facility] Other Eosinophils/100 WBC (Bld) 2.3 % . [place] [employer] Other Erythrocyte distribution width (RBC) [Ratio] 13.6 % 11.9-15.3 [facility] Other Hematocrit (Bld) [Volume fraction] 39.8 % 34.0-46.4 [facility] Other Hemoglobin (Bld) [Mass/Vol] 13.4 g/dL 11.8-15.4 [facility] Other Lymphocytes (Bld) [#/Vol] 1.9 10*3/uL 1.00-4.8 [facility] Other Lymphocytes/100 WBC (Bld) 34.3 % . [facility] Other MCH (RBC) [Entitic mass] 29.5 pg 24.7-34.3 [facility] Other MCH (RBC) [Entitic mass] 33.7 pg 32.0-35.0 [facility] Other MCV (RBC) [Entitic vol] 87.6 fL 80-100 [facility] [employer] Other Monocytes (Bld) [#/Vol] 0.5 10*3/uL 0.0-0.8 [facility] Other Monocytes/100 WBC (Bld) 8.8 % . [facility] [employer] Other Neutrophils (Bld) [#/Vol] 3.0 10*3/uL 1.8-7.7 [facility] Other Neutrophils/100 WBC (Bld) 54.1 % . [facility] Other Platelet mean volume (Bld) [Entitic vol] 8.9 fL 6.3-10.7 [place] [employer] Other Platelets (Bld) [#/Vol] 238 10*3/uL 150-450 [place] [employer] Other RBC (Bld) [#/Vol] 4.54 10*6/uL 3.60-5.00 [place] [employer] Other WBC (Bld) [#/Vol] 5.6 10*3/uL 3.8-11.6 [place] [employer] Other Complete Blood Count Auto Diff 5.6 4.5-11.0 [place] [employer] Other Complete Blood Count Auto Diff 0.1 0-0.5 [place] [employer] Other Comprehensive Metabolic Pane iron 09-28-2021 Albumin [Mass/Vol] 3.4 g/dL 3.2-5.5 [facility] [employer] Other Albumin/Globulin [Mass ratio] 0.9 {ratio} [place] [employer] Other ALP [Catalytic activity/Vol] 50 U/L 32-92 [place] [employer] Other ALT [Catalytic activity/Vol] 15 U/L 10-60 [facility] Other AST [Catalytic activity/Vol] 15 U/L 10-42 [facility] Other Bilirubin [Mass/Vol] 0.3 mg/dL 0.3-1.2 [facility] [employer] Other Calcium [Mass/Vol] 9.0 mg/dL 8.2-10.2 [facility] Other Chloride [Moles/Vol] 103 mmol/L 95-114 [facility] [employer] Other CO2 [Moles/Vol] 26.1 mmol/L 22.0-30.0 [facility] [employer] Other Creatinine [Mass/Vol] 0.72 mg/dL 0.44-1.03 [place] [employer] Other Glucose [Mass/Vol] 96 mg/dL 70-100 [place] [employer] Other Potassium [Moles/Vol] 4.2 mmol/L 3.5-5.1 [facility] [employer] Other Protein [Mass/Vol] 7.0 g/dL 6.1-7.9 [place] [employer] Other Sodium [Moles/Vol] 136 mmol/L 136-146 [place] [employer] Other Urea nitrogen [Mass/Vol] 11 mg/dL 9-23 [facility] Other Comprehensive Metabolic Panel > 60 [facility] Other Comprehensive Metabolic Panel 3.6 [facility] Other Lipid Panelon 09-28-2021 Cholesterol [Mass/Vol] 231 mg/dL 140-200 No rt [employer] Other Cholesterol in HDL [Mass/Vol] 36 mg/dL 35-85 [facility] Other Cholesterol in LDL Elph Qn 162 0-100 [place] [employer] Other Cholesterol.total/Noni sterol in HDL [Mass ratio] 6.4 {ratio} <5.0 [place] [employer] Other Lipid Panel 164 35-149 [facility] Other Lipid Panel 32 [facility] Other Thyroid Stimulating Hormoneo n 09-28-2021 TSH Qn 2.97 m[IU]/L 0.45-5.33 [facility] Other Urine 10 SGon 09-28-2021 Albumin DL <= 20 mg/L (U) [Mass/Vol] Negative [place] [employer] Other Albumin DL <= 20 mg/L (U) [Mass/Vol] trace [facility] Other pH (U) 6.5 [pH] [facility] Other Urine 10 SG Negative [facility] Other Urine 10 SG 1.025 [facility] Other Urine 10 SG 0.2 [facility] Other Urine Cultureon 09-28-2021 Bacteria identified Cx Nom (U) [facility] Other Vital Signs Date Time Vital Sign Value Performing Clinician Facility 03-28-2025 08:40-0400 Diastolic blood pressure 67 mm[Hg] Edwin Kuns DO Work Phone: [facility] 03-28-2025 08:40-0400 Heart rate 59 /min Edwin Kuns DO Work Phone: [facility] 03-28-2025 08:40-0400 SaO2% (BldA) [Mass fraction] 100 % Edwin Kuns DO Work Phone: [facility] 03-28-2025 08:40-0400 Systolic blood pressure 108 mm[Hg] Edwin Kuns DO Work Phone: [facility] 03-28-2025 08:30-0400 Respiratory rate 12 /min Edwin Kuns DO Work Phone: [facility] 03-28-2025 07:15-0400 Body height 170.18 cm Edwin Kuns DO Work Phone: [facility] 03-28-2025 07:15-0400 Body weight 77.11 kg Edwin Kuns DO Work Phone: [facility] 02-20-2025 15:55-0400 Body height 170.18 cm Edwin Kuns DO Work Phone: [facility] 02-20-2025 15:55-0400 Body mass index (BMI) [Ratio] 26.7 kg/m2 Edwin Kuns DO Work Phone: [facility] 02-20-2025 15:55-0400 Body weight 77.56 kg Edwin Kuns DO Work Phone: [facility] 02-20-2025 15:55-0400 Diastolic blood pressure 80 mm[Hg] Edwin Kuns DO Work Phone: [facility] 02-20-2025 15:55-0400 Heart rate 84 /min Edwin Kuns DO Work Phone: [facility] 02-20-2025 15:55-0400 Respiratory rate 18 /min Edwin Kuns DO Work Phone: [facility] 02-20-2025 15:55-0400 SaO2% (BldA) [Mass fraction] 99 % Edwin Kuns DO Work Phone: [facility] 02-20-2025 15:55-0400 Systolic blood pressure 120 mm[Hg] Edwin Kuns DO Work Phone: [facility] 02-12-2025 13:56-0400 Body height 170.18 cm Edwin Kuns DO Work Phone: [facility] 02-12-2025 13:56-0400 Body weight 79.37 kg Edwin Kuns DO Work Phone: [facility] 01-07-2025 09:27-0400 Body height 170.18 cm Edwin Kuns DO Work Phone: [facility] 01-07-2025 09:27-0400 Body mass index (BMI) [Ratio] 26.6 kg/m2 Edwin Kuns DO Work Phone: [facility] 01-07-2025 09:27-0400 Body weight 77.11 kg Edwin Kuns DO Work Phone: [facility] 10-21-2024 09:27-0400 Body height 170.18 cm Edwin Kuns DO Work Phone: [facility] 10-21-2024 09:27-0400 Body mass index (BMI) [Ratio] 27.1 kg/m2 Edwin Kuns DO Work Phone: [facility] 10-21-2024 09:27-0400 Body weight 78.47 kg Edwin Kuns DO Work Phone: [facility] 10-21-2024 09:27-0400 Diastolic blood pressure 60 mm[Hg] Edwin Kuns DO Work Phone: [facility] 10-21-2024 09:27-0400 Heart rate 77 /min Edwin Kuns DO Work Phone: [facility] 10-21-2024 09:27-0400 Respiratory rate 18 /min Edwin Kuns DO Work Phone: [facility] 10-21-2024 09:27-0400 SaO2% (BldA) [Mass fraction] 99 % Edwin Kuns DO Work Phone: [facility] 10-21-2024 09:27-0400 Systolic blood pressure 98 mm[Hg] Edwin Kuns DO Work Phone: [facility] 08-15-2024 08:40-0500 Body height 170.18 cm Edwin Kuns DO Work Phone: [facility] 08-15-2024 08:40-0500 Body weight 74.84 kg Edwin Kuns DO Work Phone: [facility] 05-27-2024 09:35-0400 Body height 170.18 cm [facility] 05-27-2024 09:35-0400 Body mass index (BMI) [Ratio] 27.3 kg/m2 [facility] 05-27-2024 09:35-0400 Body temperature 97.9 [degF] [facility] 05-27-2024 09:35-0400 Body weight 79.37 kg [facility] 05-27-2024 09:35-0400 Diastolic blood pressure 68 mm[Hg] [facility] 05-27-2024 09:35-0400 Heart rate 87 /min [facility] 05-27-2024 09:35-0400 SaO2% (BldA) [Mass fraction] 98 % [facility] 05-27-2024 09:35-0400 Systolic blood pressure 106 mm[Hg] [facility] 10-17-2023 09:28-0400 Body height 170.18 cm DO Edwin Kuns Work Phone: [facility] 10-17-2023 09:28-0400 Body mass index (BMI) [Ratio] 26.6 kg/m2 DO Edwin Kuns Work Phone: [facility] 10-17-2023 09:28-0400 Body weight 77.11 kg DO Edwin Kuns Work Phone: [facility] 10-17-2023 09:28-0400 Diastolic blood pressure 66 mm[Hg] DO Edwin Kuns Work Phone: [facility] 10-17-2023 09:28-0400 Heart rate 64 /min DO Edwin Kuns Work Phone: [facility] 10-17-2023 09:28-0400 Respiratory rate 16 /min DO Edwin Kuns Work Phone: [facility] 10-17-2023 09:28-0400 SaO2% (BldA) [Mass fraction] 97 % DO Edwin Kuns Work Phone: [facility] 10-17-2023 09:28-0400 Systolic blood pressure 110 mm[Hg] DO Edwin Kuns Work Phone: [facility] 10-04-2023 10:25-0500 Body height 170.18 cm DO Edwin Kuns Work Phone: [facility] 10-04-2023 10:25-0500 Body mass index (BMI) [Ratio] 26.9 kg/m2 DO Edwin Kuns Work Phone: [facility] 10-04-2023 10:25-0500 Body temperature 97.7 [degF] DO Edwin Kuns Work Phone: [facility] 10-04-2023 10:25-0500 Body weight 78.01 kg DO Edwin Kuns Work Phone: [facility] 10-04-2023 10:25-0500 Diastolic blood pressure 64 mm[Hg] DO Edwin Kuns Work Phone: [facility] 10-04-2023 10:25-0500 Heart rate 88 /min DO Edwin Kuns Work Phone: [facility] 10-04-2023 10:25-0500 Respiratory rate 18 /min DO Edwin Kuns Work Phone: [facility] 10-04-2023 10:25-0500 SaO2% (BldA) [Mass fraction] 97 % DO Edwin Kuns Work Phone: [facility] 10-04-2023 10:25-0500 Systolic blood pressure 114 mm[Hg] DO Edwin Kuns Work Phone: [facility] 04-06-2023 14:15-0400 Body height 170.18 cm Alvaro Young Other [facility] Other 04-06-2023 14:15-0400 Body mass index (BMI) [Ratio] 25.68 kg/m2 Alvaro Young Other [facility] Other 04-06-2023 14:15-0400 Body weight 74.39 kg Alvaro Young Other [facility] Other 04-06-2023 14:15-0400 Diastolic blood pressure 78 mm[Hg] Alvaro Young Other [facility] Other 04-06-2023 14:15-0400 Systolic blood pressure 100 mm[Hg] Alvaro Young Other [facility] Other 03-19-2023 12:10-0400 Body height 170.18 cm Lisy Sims Other [facility] Other 03-19-2023 12:10-0400 Body mass index (BMI) [Ratio] 26 kg/m2 Lisy Sims Other [facility] Other 03-19-2023 12:10-0400 Body temperature 98.2 [degF] Lisy Sims Other [facility] Other 03-19-2023 12:10-0400 Body weight 75.3 kg Lisy Sims Other [facility] Other 03-19-2023 12:10-0400 Diastolic blood pressure 68 mm[Hg] Lisy Sims Other [facility] Other 03-19-2023 12:10-0400 Respiratory rate 18 /min Lisy Sims Other [facility] Other 03-19-2023 12:10-0400 SaO2% (BldA) [Mass fraction] 98 % Lisy Sims Other [facility] Other 03-19-2023 12:10-0400 Systolic blood pressure 114 mm[Hg] Lisy Sims Other [facility] Other 11-17-2022 14:45-0400 Body height 170.18 cm Alvaro Young Other [facility] Other 11-17-2022 14:45-0400 Body mass index (BMI) [Ratio] 27.56 kg/m2 Alvaro Young Other [facility] Other 11-17-2022 14:45-0400 Body weight 79.83 kg Alvaro Young Other [facility] Other 11-17-2022 14:45-0400 Diastolic blood pressure 73 mm[Hg] Alvaro Young Other [facility] Other 11-17-2022 14:45-0400 Systolic blood pressure 115 mm[Hg] Alvaro Young Other [facility] Other 10-24-2022 11:00-0400 Body height 170.18 cm Edwin [employer] Other [facility] Other 10-04-2022 09:00-0500 Body height 170.18 cm Edwin Kuns Other [facility] Other 10-04-2022 09:00-0500 Body mass index (BMI) [Ratio] 27.56 kg/m2 Edwin [employer] Other [facility] Other 10-04-2022 09:00-0500 Body weight 79.83 kg Edwin [employer] Other [facility] Other 10-04-2022 09:00-0500 Diastolic blood pressure 66 mm[Hg] Edwin [employer] Other [facility] Other 10-04-2022 09:00-0500 Respiratory rate 16 /min Edwin Kuns Other [facility] Other 10-04-2022 09:00-0500 SaO2% (BldA) [Mass fraction] 97 % Edwin Kuns Other [facility] Other 10-04-2022 09:00-0500 Systolic blood pressure 102 mm[Hg] Edwin Kuns Other [facility] Other 10-07-2021 11:15-0500 Body height 170.18 cm Edwin Kuns Other [facility] Other 09-28-2021 10:45-0500 Body height 170.18 cm Edwin Kuns Other [facility] Other 09-28-2021 10:45-0500 Body mass index (BMI) [Ratio] 25.09 kg/m2 Edwin Kuns Other [facility] Other 09-28-2021 10:45-0500 Body weight 72.67 kg Edwin Kuns Other [facility] Other 09-28-2021 10:45-0500 Diastolic blood pressure 64 mm[Hg] Edwin Kuns Other [facility] Other 09-28-2021 10:45-0500 Respiratory rate 16 /min Edwin Kuns Other [facility] Other 09-28-2021 10:45-0500 SaO2% (BldA) [Mass fraction] 99 % Edwin Kuns Other [facility] Other 09-28-2021 [id number] Systolic blood pressure 98 mm[Hg] Edwin Kuns Other [facility] [employer] Other Encounters Encounter Date Encounter Type Care Provider Facility Start: 04-14-2025 End: 04-14-2025 ambulatory Edwin Kuns Facility:[facility] Start: 04-14-2025 Non-patient / Non-visit Bridget Suggs MD -[facility] Work Phone: Start: 03-28-2025 End: 03-28-2025 Patient encounter procedure Chano Bo MD -CT Scan [facility] [place] Work Phone: Start: 03-28-2025 End: 03-28-2025 ambulatory Edwin Kuns DO Work Phone: [facility] Work Phone: Start: 02-20-2025 End: 02-20-2025 ambulatory Edwin Kuns DO Work Phone: [facility] Work Phone: Start: 02-20-2025 End: 02-20-2025 Patient encounter procedure Chano Bo MD -[facility] Work Phone: Start: 02-11-2025 End: 02-11-2025 ambulatory Edwin Kuns DO Work Phone: [facility] Work Phone: Start: 02-11-2025 End: 02-11-2025 Departed Referred Tammie Sena DO -[facility] Work Phone: Start: 01-07-2025 End: 01-07-2025 ambulatory Edwin Kuns DO Work Phone: [facility] Work Phone: Start: 01-07-2025 End: 01-07-2025 Patient encounter procedure Edwin Kuns DO Work Phone: [facility] Work Phone: Start: 10-21-2024 End: 10-21-2024 Patient encounter procedure Edwin Kuns DO Work Phone: [facility] [place] Work Phone: Start: 10-21-2024 End: 10-21-2024 ambulatory Edwin Kuns DO Work Phone: [facility] Work Phone: Start: 10-21-2024 End: 10-21-2024 ambulatory Edwin Kuns DO Work Phone: [facility] Work Phone: Start: 10-21-2024 End: 10-21-2024 Encounter for general adult medical examination without abnormal findings Edwin Kuns DO Work Phone: [facility] Start: 10-21-2024 End: 10-21-2024 Patient encounter procedure Edwin Kuns DO Work Phone: [facility] [place] Work Phone: Start: 09-30-2024 End: 09-30-[facility] Start: 08-15-2024 End: 08-15-2024 ambulatory Ewdin Kuns DO Work Phone: [facility] Work Phone: Start: 08-15-2024 End: 08-15-2024 Departed Referred Edwin Kuns DO Work Phone: [facility] Work Phone: Start: 05-27-2024 End: 05-27-2024 ambulatory [facility] Work Phone: Start: 05-27-2024 End: 05-27-2024 Patient encounter procedure [facility] [place] Work Phone: Start: 10-17-2023 End: 10-17-2023 ambulatory DO Edwin Kuns Work Phone: [facility] Work Phone: Start: 10-17-2023 Patient encounter status DO Edwinalexei Tuckers Work Phone: [facility] Start: 10-17-2023 End: 10-17-2023 Encounter for general adult medical examination without abnormal findings DO Edwinalexei Tuckers Work Phone: [facility] Start: 10-17-2023 End: 10-17-2023 Patient encounter procedure DO Edwinalexei Tuckers Work Phone: [facility] [place] Work Phone: Start: 10-09-2023 End: 10-09-2023 Patient encounter procedure DO Edwinalexei Tuckers Work Phone: [facility] [place] Work Phone: Start: 10-04-2023 End: 10-04-2023 Patient encounter procedure DO Edwinalexei Baron Work Phone: [facility] [place] Work Phone: Start: 07-20-2023 End: 07-20-2023 ambulatory Edwin Baron Other [facility] Other Start: 07-20-2023 Telephone encounter Edwinalexei Baron [facility] [place] Start: 04-06-2023 End: 04-06-2023 ambulatory Alvaro Young Other [facility] Other Start: 04-06-2023 Office outpatient visit 15 minutes Alvaro Young [facility] Start: 03-19-2023 End: 03-19-2023 ambulatory Lisy Sims Other [facility] Other Start: 03-19-2023 Office outpatient visit 15 minutes Lisy Sims [facility] [place] Start: 03-19-2023 Telephone encounter Edwin Kuns [facility] Start: 01-03-2023 End: 01-03-2023 ambulatory Edwinalexei Tuckers Other [facility] Other Start: 01-03-2023 Telephone encounter Edwinalexei Tuckers [facility] [place] Start: 12-30-2022 End: 12-30-2022 ambulatory Edwin Tuckers Other [facility] Other Start: 12-30-2022 Telephone encounter Edwinalexei Baron [facility] Start: 11-17-2022 End: 11-17-2022 ambulatory Alvaro Hector Other [facility] Other Start: 11-17-2022 Office outpatient ne w 45 minutes Alvaro Young [facility] Start: 10-24-2022 End: 10-24-2022 ambulatory Edwin Garretts Other [facility] Other Start: 10-24-2022 Telephone encounter Edwinalexei Tuckers [facility] [place] Start: 10-04-2022 Encounter for genera l adult medical examination without abnormal findings Edwinalexei Tuckers [facility] [place] Start: 10-04-2022 Periodic preventive med est patient 40-64yrs Edwinalexei Tuckers [facility] [place] Start: 10-04-2022 End: 10-04-2022 ambulatory DO Edwin Kuns Work Phone: [facility] Work Phone: Start: 10-04-2022 End: 10-04-2022 Patient encounter procedure DO Edwin Kuns Work Phone: [facility] [place] Work Phone: Start: 05-30-2022 End: 05-30-2022 ambulatory Edwin Kuns Other [facility] Other Start: 05-30-2022 Telephone encounter Edwin Kuns [facility] Start: 12-30-2021 End: 12-31-[address] KISHAN HUFF Facility:[facility] Start: 12-22-2021 End: 12-22-[address] KISHAN HUFF Facility:[facility] Start: 10-07-2021 End: 10-07-2021 ambulatory Edwin Baron Other [facility] Other Start: 10-07-2021 Office outpatient visit 10 minutes Edwin Baron [facility] Start: 09-28-2021 End: 09-28-2021 ambulatory Edwin Baron Other [facility] Other Start: 09-28-2021 Annual wellness visit Edwin contreras Other [facility] Other Start: 09-28-2021 Encounter for genera l adult medical examination without abnormal findings Edwin Baron [facility] Start: 09-28-2021 Periodic preventive med est patient 40-64yrs Edwin Baron [facility] Start: 06-12-2018 Patient encounter procedure Facility:[id number] Procedures Date Procedure Procedure Detail Performing Clinician Start: 03-28-2025 CT angiography of co ronary arteries Edwin Baron DO Work Phone: Start: 10-21-2024 Urine culture Edwin rachel DO Work Phone: Start: 05-27-2024 Quick Strep (POC) Start: 10-17-2023 Urine culture DO Edwinalexei Baron Work Phone: Start: 10-04-2023 Quick Strep (POC) DO Br josselyn Loraine Work Phone: Plan of Treatment Date Care Activity Detail Author Start: 02-25-2025 [facility] Start: 02-20-2025 [facility] Start: 10-21-2024 Bacteria identified in Urine by Culture Urine Culture [facility] Start: 10-21-2024 Urine culture [facility] Start: 10-21-2024 [facility] Start: 10-04-2022 Bacteria identified in Urine by Culture Urine Culture [facility] Cardiovascular stress testing [facility] CT angiography of co ronary arteries [facility] Immunizations Immunization Date Immunization Notes Care Provider Fa cility NEGATED: Highlighted row has not occurred!07-20-2020 influenza, seasonal, injectable Patient Objection Edwin [employer] Other [facility] Other NEGATED: Highlighted row has not occurred!12-23-2019 influenza, seasonal, injectable Patient Objection Edwin [employer] Other [facility] Other Payers Date Payer Category Payer Self-pay [id number] 1980 Unknown [id number] [id number] 1980 Unknown [id number] 2.16.84 [id number] 1979 Unknown [id number] 2.16.84 [id number] 1959 Private Health Insurance [id number] Private Health Insurance [id number] Unknown [id number] 2.16.8 [id number] Unknown [id number] 2.16.8 [id number] Unknown [id number] 2.16.8 [id number] Unknown [id number] 2.16.8 [id number] Unknown [id number] 2.16.8 [id number] Unknown [id number] 2.16.8 [id number] Unknown [id number] 2.16.8 [id number] Social History Date Type Detail Facility Unknown if ever smoked [facility] Other Sex Assigned At Sex Assigned At Bir th [facility] Other Start: 1980 Sex Assigned At Female [facility] Start: 10-17-2023 End: 02-20-2025 Tobacco smoking status NHIS Never smoked tobacco (finding) [facility] Start: 10-17-2024 End: 01-07-2025 Sex Female (finding) [facility] Clinical Notes 01-07-2014 to 03-28-2025 Note Date & Type Note Facility 03-28-2025 Radiology Diagnostic study note [facility] [place] [address] CT Scan Report Signed Patient: Gabriella Pozo MR#: [id number] : 1980 Acct:[id number] Age/Sex: 44 / F ADM Date: 5 Loc: CT Room: Type: [facility] Attending Dr: Chano Robins MD Copies to: Chano Robins MD~ Ordering Provider: Chano Robins MD Date of Service: 03/28/25 CT/CT heart angio w/score: R07.9 - Chest pain, unspecified CLINICAL INDICATION: Patient Age: 44 years Patient Gender: Female Indication: Evaluation of coronary arteries for atherosclerosis or coronary anomalies TECHNIQUE: Image Acquisition: A [employer] View 128 was used for data acquisition. Bolus tracking in the descending aorta with a threshold of 150 HU media was performed. Immediately afterwards, ECG synchronized Cardiac CT was then performed from cardiac base to apex using Trigger Method: retrospective gating with ECG tube current modulation. A total of 80 mL of Omnipaque 350 mgl/mL contrast media was administered at 5 mL/sec followed by a saline flush using a biphasic injection protocol. Tube voltage 100 kVp. Heart rate was controlled with metoprolol, as needed. Coronary vasodilation was facilitated with sublingual nitroglycerin. The average heart rate at the time of acquisition was 61 bpm and regular. Image Reconstruction: Transaxial images were reconstructed at 0.63 mm slice thickness. Data was reviewed interactively on an advanced workstation capable of 2 and 3 dimensionaldisplays in all conventional reconstruction formats including multiplanar reformations, maximum intensity projections, curved multiplanar reformations, and volume rendered reconstructions. Selected routine images displaying relevantcoronary anatomy and pathology were saved and sent to PACS. Complications: None Technical Quality: Overall image quality is Good. Coronary artery opacification is Excellent. No significant artifact. Total DLP (Dose-Length Product): 1417 mGy.cm). (19.8 mSv). Please note: The reported value represents the total of one or more individual components during the CT acquisition on this date and at this time, and as such, the same value may appear in more than one CT report depending on the interpreting/reporting physicians. FINDINGS: -CT Coronary Calcium Scoring- LMA= 0 LAD= 0 LCX= 0 RCA= 0 No coronary calcification with an Agatston score = CAC score of 0 using the AJ-130 method, thus there is no percentile rank. Other Calcification: No other significant intracardiac calcification. -Coronary CT Angiography- Coronary Arteries: The coronaries have normal origin and proximal course. Note: Stenosis is reported as maximum percentage diameter stenosis. Stenosis grading is reported using the following scheme. Quantitative Stenosis Grading: CAD-RADS 0: 0% - No visible stenosis CAD-RADS 1: 1-24% - Minimal stenosis CAD-RADS 2: 25-49% - Mild stenosis CAD-RADS 3: 50-69% - Moderate stenosis CAD-RADS 4A: 70-99% - Severe stenosis in 1-2 vessels CAD-RADS 4B: Left main >50%, or 3 vessel >70% CAD-RADS 5: 100% - Occluded Left Main: CAD-RADS 0: The left main bifurcates into the left anterior descending artery and left circumflex artery. The left main has no visible stenosis. LAD: CAD-RADS 0. The LAD courses along the anterior interventricular grove as itgives off diagonal arteries. No significant stenosis of the LAD. LCx and Obtuse Marginals: CAD-RADS 0. The left circumflex courses along the left AV groove as it gives off obtuse marginal arteries. No significant stenosis of the left circumflex artery. RCA: CAD-RADS 0. The right coronary artery originates from the right cusp and courses along the right AV groove as it gives off acute marginal arteries. Distally provides the right PDA. No significant stenosis of the RCA. The mid RCA is not well visualized at the crux due to motion artifact. The coronary arterial system is right dominant. Non Coronary Cardiac Findings: Grossly normal cardiac chamber sizes. Unremarkable pericardium. Normal interatrial and interventricular septum, aortic valve, mitral valve. Cardiac function: LVEF (%): 56 LV EDV (ml): 118 LV ESV (ml): 51 SV (ml): 66 Extra Cardiac Structures: The pulmonary veins and imaged central veins are unremarkable. Partially imaged thoracic aorta and pulmonary arteries are unremarkable. See radiologist report for abdominal and extracardiac chest CT interpretation. CT/CT heart angio w/score IMPRESSION: 1. No coronary calcification with an Agatston score = CAC score of 0 using the AJ-130 method, thus there is no percentile rank. 2. No evidence of epicardial coronary artery disease. 3. CAD-RADS 0: Management recommendations: Reassurance. Consider non-atherosclerotic causes of chest pain. 4. Grossly normal cardiac chamber sizes. 5. Normal LV systolic function. LVEF 56%. Impression dictated by: Ahsan Romero M.D. 03/28/2025 5:33 PM Dictation Location: [place] [id number] Transcribed By: PROSPER 03/28/25 17 (more content not included)... [facility] Work Phone: 02-20-2025 Evaluation note Authored February 20, 2025 4:42pm Impression: This is a 44-yea r-old white female with an intermediate baseline CHD risk (10-year risk 10 to 20%) now with concerning symptoms for angina pectoris. Some features typical some atypical. Baseline ECG is abnormal. NYHA Ib. CCS 2. Recommendations for risk stratification: 1. CCTA with coronary artery calcium score 2. GXT 3. Echocardiogram 4. No aspirin for now given patient's history of ulcerative proctitis 5. Do recommend that the patient reschedule her upcoming flexible sigmoidoscopy until cardiac risk stratification exams are complete [facility] Work Phone: 1(803) 857-893006-03-2025 Evaluation note* Diagnosis Onset Date Resolution Status Admit Date Ulcerative proctitis acute January 07, 2025 9:23am [facility] Work Phone: 1(300) 734-195903-17-2025 Evaluation note* Author Jackelin Thomas [facility] Authored October 21, 2024 9:5 3am The above note written by Aman Thomas LPN, acting as human recorder, note dictated by Dr. Edwin Baron. [facility] Work Phone: 1(851) 362-921303-12-2024 Evaluation note* Author [address] [facility] Authored October 17, 2023 9:1 2am The above note written by RUBI Sanabria acting as human recorder, note dictated by Dr. Edwin Baron . [facility] Work Phone: 1(455) 205-778512-14-2023 Evaluation note* Encounter Date Diagnosis Assessment Notes Treatment Notes Treatment Clinical Notes Jul, Anxiety (ICD-10 - F41.9) [facility] Other 08-31-2023 Evaluation note* Encounter Date Diagnosis Assessment Notes Treatment Notes Treatment Clinical Notes Mar, Ulcerative proctitis (ICD-10 - K51.20) Continue canasa suppositories at bedtime Rto 1 yr Mar, Hiatal hernia (ICD-10 - K44.9) Mar, Gastritis (ICD-10 - K29.70) Mar, Esophageal spasm (ICD-10 - K22.4) Mar, Esophageal dysmotility (ICD-10 - K22.4) f/u prn Mar, History of colon polyps (ICD-10 - Z86.010) Repeat colonoscopy in 5 yrs [facility] Other 08-13-2023 Evaluation note* Encounter Date Diagnosis Assessment Notes Treatment Notes Treatment Clinical Notes Mar, Acute gout of right hand, unspecified cause (ICD-10 - M10.9) Low-purine diet material was printed. Discussed with patient exam is concerning for gout. Patient has had no injury to area. We will treat with 9-day prednisone taper. Finish entire course. Low purine diet discussed. Follow-up with PCP if not gradually improving over the next 4 to 5 days with steroid. May use Tylenol, ice and elevation for discomfort. Patient verbalized understanding of treatment plan. [facility] Other 05-30-2023 Evaluation note* Encounter Date Diagnosis Assessment Notes Treatment Notes Treatment Clinical Notes December, Anxiety (ICD-10 - F41.9) [facility] Other 04-13-2023 Evaluation note* Encounter Date Diagnosis Assessment Notes Treatment Notes Treatment Clinical Notes Nov, Indigestion (ICD-10 - K30) Nov, Ulcerative proctitis with rectal bleeding (ICD-10 - K51.211) Nov, Dysphagia (ICD-10 - R13.10) [facility] Other 03-20-2023 Evaluation note* Encounter Date Diagnosis Assessment Notes Treatment Notes Treatment Clinical Notes Oct, Mixed hyperlipidemia (ICD-10 - E78.2) Reviewed blood work results with the patient. Cholesterol levels have increased from last check. The patient admits she does have a large family history for cardiovascular disease. I suggest we start the patient on a statin twice a week. Patient is agreeable. We will recheck blood work again in three months. [facility] Other 02-28-2023 Evaluation note* Encounter Date Diagnosis Assessment Notes Treatment Notes Treatment Clinical Notes Sep, Wellness examination (ICD-10 - Z00.00) Personalized health advice was given to the beneficiary to health education of preventative counseling services or programs aimed at reducing identified risk factors and improving self-management or community-based lifestyle interventions to reduce health risks and promote self-management and wellness, including physical activity and nutrition. A written plan for screenings was discussed, flu vaccination, routine lab studies, eye exams, as well as risk factors for other medical problems. Sep, Microscopic hematuria (ICD-10 - R31.29) Hematuria noted upon review of in house urinalysis. The patient is currently in the middle of her menstrual cycle. Sep, Leukocytes in urine (ICD-10 - R82.998) Urine specimen sent for C&S due to trace leukocytes upon review of in house sample. The patient is asympotmatic at this time. Sep, Family history of heart disease (ICD-10 - Z82.49) The patient has a strong family history of heart disease, reports her brother at the age of 57 recently had open-heart surgery and stent placement. Blood work ordered today, we will discuss possibly starting a statin a medication when he follow-up results. [facility] Other 10-24-2022 Evaluation note* Encounter Date Diagnosis Assessment Notes Treatment Notes Treatment Clinical Notes May, Anxiety (ICD-10 - F41.9) [facility] Other 03-03-2022 Evaluation note* Encounter Date Diagnosis Assessment Notes Treatment Notes Treatment Clinical Notes Oct, Leukocytes in urine (ICD-10 - N39.0) Culture results reviewed. Oct, Hyperlipemia (ICD-10 - E78.5) Cholesterol levels have improved slightly compared to previous findings although they remain above normal range. Discussion was had regarding the benefits of starting a prescription medication , the patient declines at this time. Pt is to continue with the above medication and continue watching their diet and increase their exercise regimen. [facility] Other 02-22-2022 Evaluation note* Encounter Date Diagnosis Assessment Notes Treatment Notes Treatment Clinical Notes Sep, Wellness examination (ICD-10 - Z00.00) Personalized health advice was given to the beneficiary to health education of preventative counseling services or programs aimed at reducing identified risk factors and improving self-management or community-based lifestyle interventions to reduce health risks and promote self-management and wellness, including physical activity and nutrition. A written plan for screenings was discussed, flu vaccination, routine lab studies, eye exams, as well as risk factors for other medical problems. Sep, Leukocytes in urine (ICD-10 - N39.0) Trace leukocytes noted upon review of in house urinalysis. Specimen sent for C&S [facility] Other 06-03-2014 History general Narrative - Reported* Type Description Date Medical History colitis Medical History 01-07-14: Colonoscopy with polypectomy, endoclip placement, and biopsy Medical History 01-07-14: EGD with biopsy Medical History EKG 04/03/17, 06/2019, 09/2021 Medical History 07/03/[address] Vi levy Medical History 06/12/18 Stress test Surgical History wisdom teeth [facility] Other Evaluation noteNo assessment information available [facility] Work Phone: Evaluation noteNo InformationN[facility]Found[facility] [facility] Other Evaluation note* Author Jackelin Thomas [facility] Authored October 21, 2024 9:5 3am The above note written by Aman Thomas LPN, acting as human recorder, note dictated by Dr. Edwin Baron. [facility] Work Phone: Reason for referral (narrative)No reason for referral information availableOhiohealth [facility] Work Phone: Summary Purpose Family History No Family History Records Found Relationship Condition Age at Onset Recorded Date/T elvin father Myocardial infarction Unknown Presence of combinat ion internal cardiac defibrillator (ICD) and pacemaker Unknown brother Status post four ves ney coronary artery bypass Unknown Heart disease Unknown family member Malignant neoplasm of colon Unknown Multiple sclerosis Unknown Not Specified Anxiety Unknown Family history of mental disorder Unknown Relationship Condition Age at Onset Recorded Date/T elvin father Myocardial infarction Unknown Presence of combinat ion internal cardiac defibrillator (ICD) and pacemaker Unknown brother Status post four ves ney coronary artery bypass Unknown Heart disease Unknown family member Malignant neoplasm of colon Unknown Multiple sclerosis Unknown mother Anxiety Unknown Family history of mental disorder Unknown Advance Directives No Advanced Directives Records Found Advance Directive Response Recorded Date/ Time Advance Directives No June 9:02am Advance Directive Response Recorded Date/ Time Advance Directives No September 10:49am Advance Directive Response Recorded Date/ Time Advance Directives No February 18 11:27am Chief Complaint and Reason for Visit Chief Complaint Sore throat E78.2 WELLNESS See order Reason for Visit Pharyngitis Sore throat Anxiety Hyperlipemia Leukocytes in urine Wellness examination Chief Complaint Sore throat Chief Complaint Admit Date ulcerative proctitis August 15, 2024 1 0:00am Chief Complaint Admit Date ulcerative proctitis August 15, 2024 1 0:00am wellness October 21, 2024 8:5 9am Reason for Visit Admit Date Leukocytes in urine October 21, 2024 8:5 9am Wellness examination October 21, 2024 8: 59am Chief Complaint Admit Date wellness October 21, 2024 8:5 9am z00.00 October 21, 2024 9:2 3am Z00.00 October 21, 2024 10: 02am 6 month follow up January 07, 2025 9:23a m Reason for Visit Admit Date Leukocytes in urine October 21, 2024 8:5 9am Wellness examination October 21, 2024 8: 59am Ulcerative proctitis January 07, 2025 9:23 am Chief Complaint Admit Date 6 month follow up January 07, 2025 9:23a m SR Chest pain, ex sob ok Tann Destinee sis in law February 20, 2025 3:47pm Reason for Visit Admit Date Ulcerative proctitis January 07, 2025 9:23 am Chief Complaint Admit Date 6 month follow up January 07, 2025 9:23a m SR Chest pain, ex sob ok Tann Destinee sis in law February 20, 2025 3:47pm R07.9 February 20, 2025 3:50 pm Reason for Visit Admit Date Ulcerative proctitis January 07, 2025 9:23 am Abnormal ECG February 20, 2025 3:47 pm Chest pain February 20, 2025 3:47 pm Dyspnea February 20, 2025 3:47 pm Family history of heart dise ase in female family member before age 65 February 20, 2025 3:47pm Hyperlipemia February 20, 2025 3:47 pm Chief Complaint Admit Date 6 month follow up January 07, 2025 9:23a m SR Chest pain, ex sob ok Tann Destinee sis in law February 20, 2025 3:47pm R07.9 February 20, 2025 3:50 pm R07.9 R06.00 March 28, 2025 7: 00am Chief Complaint Admit Date ulcertive proctitis February 11, 2025 7:00a m SR Chest pain, ex sob ok Tann Destinee sis in law February 20, 2025 3:47pm R07.9 February 20, 2025 3:50 pm R07.9 R06.00 March 28, 2025 7: 00am R07.9 R06.00 April 14, 2025 12:50pm Reason for Visit Admit Date Abnormal ECG February 20, 2025 3:47 pm Chest pain February 20, 2025 3:47 pm Dyspnea February 20, 2025 3:47 pm Family history of heart dise ase in female family member before age 65 February 20, 2025 3:47pm Hyperlipemia February 20, 2025 3:47 pm Chief Complaint Admit Date ulcertive proctitis February 11, 2025 7:00a m SR Chest pain, ex sob ok Tann Destinee sis in law February 20, 2025 3:47pm R07.9 February 20, 2025 3:50 pm R07.9 R06.00 March 28, 2025 7: 00am Additional Source Comments INFORMATION SOURCE (unrecogn ized section and content) DATE CREATED AUTHOR 07/15/2018 [facility] DATE CREATED AUTHOR AUTHOR'S ORGANIZ ATION 01/04/2022 [facility] DATE CREATED AUTHOR AUTHOR'S ORGANIZ ATION 10/04/2024 [facility] DATE CREATED AUTHOR AUTHOR'S ORGANIZ ATION 05/13/2025 [facility] REASON FOR VISIT (unrecogniz ed section and content) wellnessREVIEW LABS, LMTRC 1 0:03Refillswellnessreview labs, phone callPATIENT COMPLAINING OF INDIGESTION AND BLOODY STOOLSNo InformationRefillsRIGHT THUMB SWOLLEN NO REASONNo InformationPatient here for follow up EGD and colonoscopyrefill Care Teams (unrecognized sec tion and content) Team Status: Inactive Member Role Status Belem Baron DO Primary Care Provider, Attending Provi hanna Active Team Status: Active Member Role Status Dates Edwin Baron DO Primary Care Provider Active Team Status: Active Member Role Status Dates Kishan Huff Specialist Active Alvaro Young MD Specialist Active Edwin Baron DO Primary Care Provider Active Team Status: Inactive Member Role Status Belem Baron DO Primary Care Provider Active Sta rt: October 04, 2023 End: October 04, 2023 Charles Pendleton APRN Attending Provider Active Start: October 04, 2023 End: October 04, 2023 Team Status: Inactive Member Role Status Belem Baron DO Primary Care Provide r, Attending Provider Active Start: October 09, 2023 End: October 09, 2023 Team Status: Inactive Member Role Status Dates Edwin Baron DO Primary Care Provide r, Attending Provider Active Start: October 17, 2023 End: October 17, 2023 Team Status: Active Member Role Status Dates Kishan Huff DO Specialist Active Alvaro Young MD Specialist Active Edwin Baron , DO Primary Care Provider Active Team Status: Inactive Member Role Status Belem Baron DO Primary Care Provider Active Sta rt: May 27, 2024 End: May 27, 2024 Lisy Sims APRN Attending Provider Active Start: May 27, 2024 End: May 27, 2024 Team Status: Inactive Member Role Status Belem Baron DO Primary Care Provider Active Sta rt: August 15, 2024 End: August 15, 2024 Tammie Aguila Ly , DO Attending Provider Active St art: August 15, 2024 End: August 15, 2024 Team Status: Inactive Member Role Status Belem Baron DO Primary Care Provide r, Attending Provider Active Start: October 21, 2024 End: October 21, 2024 Team Status: Active Member Role Status Belem Baron DO Primary Care Provide r, Attending Provider Active Start: October 21, 2024 Team Status: Inactive Member Role Status Belem Baron DO Primary Care Provider Active Sta rt: January 07, 2025 End: January 07, 2025 Tamime L Ly , DO Attending Provider Active St art: January 07, 2025 End: January 07, 2025 Team Status: Inactive Member Role Status Belem Baron DO Primary Care Provider Active Sta rt: February 20, 2025 End: February 20, 2025 Chano Robins MD Attending Provider Active Star t: February 20, 2025 End: February 20, 2025 Team Status: Active Member Role Status Belem Baron DO Primary Care Provider Active Sta rt: February 20, 2025 Chano Robins MD Attending Provider Active Star t: February 20, 2025 Team Status: Inactive Member Role Status Belem Baron DO Primary Care Provider Active Sta rt: March 28, 2025 End: March 28, 2025 Chano Robins MD Attending Provider Active Star t: March 28, 2025 End: March 28, 2025 Team Status: Inactive Member Role Status Dates Edwin Baron DO Primary Care Provider Active Sta rt: February 11, 2025 End: February 11, 2025 Tammie Sena DO Attending Provider Active St art: February 11, 2025 End: February 11, 2025 Team Status: Active Member Role Status Dates Edwin DO [place] Primary Care Provider Active Sta rt: April 14, 2025 Chano Robins MD Referring Provider Active Star t: April 14, 2025 Chano Robins MD Other Provider Active Start: Ned reyes 2024 Bridget Suggs MD Attending Provider Active Sta rt: April 14, 2025 Goals (unrecognized section and content) Goals may be documented in a n alternate section FOR RECORDS PERTAINING TO PATIENTS WHO ARE OR HAVE BEEN ENROLLED IN A CHEMICAL DEPENDENCY/SUBSTANCEABUSE PROGRAM, SOME INFORMATION MAY BE OMITTED. This clinical summary was aggregated from multiple sources. Caution should be exercised in using it in the provision of clinical care. This summary normalizes information from multiple sources, and as a consequence, information in this document may materially change the coding, format and clinical context of patient data. In addition, data may be omitted in some cases. CLINICAL DECISIONS SHOULD BE BASED ON THE PRIMARY CLINICAL RECORDS. [facility]. provides no warranty or guarantee of the accuracy or completeness of information in this document.
== END 2025-05-15 09:52 | disposition home or self-care (01) ==
LOC: MAMMO 09:51
PROVIDERS: PCP Family Medicine; Visit Provider Obstetrics & Gynecology
DX: Z12.31 Encounter for screening mammogram for malignant neoplasm of breast (principal)
CPT/HCPCS: 77063; 77067